=== PATIENT | female | born 1985 | race African-American/Black ===

== ENCOUNTER 2017-04-23 23:50 | Emergency (ER) | payer BC ==
[2017-04-24] MEDS ORDERED: cefTRIAXone 1,000 MG in Lidocaine 1% 4 ML IM ONE (00:38)
--- NOTE | 2017-04-24 00:41 | EDM.PDOC ---
ED HPI GENERAL MEDICAL PROBLEM - General Chief Complaint: Upper Extremity Injury/Pain Stated Complaint: PAIN LT MIDDLE FINGER Time Seen by Provider: 04/24/17 00:38 Source of Information: Reports: Patient - History of Present Illness INITIAL COMMENTS - FREE TEXT/NARRATIVE: HISTORY AND PHYSICAL: History of present illness: [Patient has a cellulitis on her left third digit tuft that began after ripping off a hangnail, patient had been poking at her finger with a needle as well thinking there were some exudates to drain as she has had a distal phelon in the past however is more consistent with just a cellulitis at this time. No fever nausea vomiting chills sweats there is redness tenderness and mild swelling of the distal finger no redness past the distal phalanx at this time ] Review of systems: As per history of present illness and below otherwise all systems reviewed and negative. Past medical history: As per history of present illness and as reviewed below otherwise noncontributory. Surgical history: As per history of present illness and as reviewed below otherwise noncontributory. Social history: No reported history of drug or alcohol abuse. Family history: As per history of present illness and as reviewed below otherwise noncontributory. Physical exam: HEENT: Atraumatic, normocephalic, pupils reactive, negative for conjunctival pallor or scleral icterus, mucous membranes moist, throat clear, neck supple, nontender, trachea midline. Lungs: Clear to auscultation, breath sounds equal bilaterally, chest nontender. Heart: S1S2, regular, negative for clicks, rubs, or JVD. Abdomen: Soft, nondistended, nontender. Negative for masses or hepatosplenomegaly. Negative for costovertebral tenderness. Pelvis: Stable nontender. Genitourinary: Deferred. Rectal: Deferred. Extremities: Atraumatic, negative for cords or calf pain. Neurovascular unremarkable. Neuro: Awake, alert, oriented. Cranial nerves II through XII unremarkable. Cerebellum unremarkable. Motor and sensory unremarkable throughout. Exam nonfocal. Skin as per history of present illness Diagnostics: [Clinical ] Therapeutics: [Rocephin 1 g IM Bactrim double strength by mouth twice a day #20 no refill Tramadol 50 mg by mouth 3 times a day when necessary ] Impression: [Cellulitis distal finger] Definitive disposition and diagnosis as appropriate pending reevaluation and review of above. Left 3-Middle finger Pain Score (Numeric/FACES): 9 - Related Data Allergies Allergy/AdvReac Type Severity Reaction Status Date / Time No Known Allergies Allergy Verified 04/24/17 00:06 Home Meds: Home Meds . 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 ED EXAM, GENERAL - Physical Exam Exam: See Below Course - Vital Signs Last Recorded V/S: Last Vital Signs Temp 36.4 C 04/24/17 00:02 Pulse 112 H 04/24/17 00:02 Resp 18 04/24/17 00:02 BP 140/66 04/24/17 00:02 Pulse Ox 98 04/24/17 00:02 - Orders/Labs/Meds Orders: Active Orders 24 hr Category Date Time Status cefTRIAXone [Rocephin] 1,000 mg Med 04/24/17 00:38 Ordered Lidocaine 1% [Xylocaine-MPF 1%] 4 ml IM ONETIME Departure - Departure Time of Disposition: 00:40 Disposition: Home, Self-Care 01 Condition: Good Clinical Impression: Cellulitis - Discharge Information Referrals: PCP,None [Primary Care Provider] - Additional Instructions: Medication as prescribed Return if symptoms persist or worsen or new concerning symptoms develop Follow-up with primary care in 2 weeks sooner as needed The following information is given to patients seen in the emergency department who are being discharged to home. This information is to outline your options for follow-up care. We provide all patients seen in our emergency department with a follow-up referral. The need for follow-up, as well as the timing and circumstances, are variable depending upon the specifics of your emergency department visit. If you don't have a primary care physician on staff, we will provide you with a referral. We always advise you to contact your personal physician following an emergency department visit to inform them of the circumstance of the visit and for follow-up with them and/or the need for any referrals to a consulting specialist. The emergency department will also refer you to a specialist when appropriate. This referral assures that you have the opportunity for follow-up care with a specialist. All of these measure are taken in an effort to provide you with optimal care, which includes your follow-up. Under all circumstances we always encourage you to contact your private physician who remains a resource for coordinating your care. When calling for follow-up care, please make the office aware that this follow-up is from your recent emergency room visit. If for any reason you are refused follow-up, please contact the [facility] emergency department at and asked to speak to the emergency department charge nurse. - My Orders Last 24 Hours: My Active Orders 04/24/17 00:38 cefTRIAXone [Rocephin] 1,000 mg Lidocaine 1% [Xylocaine-MPF 1%] 4 ml IM ONETIME - Assessment/Plan Last 24 Hours: My Active Orders 04/24/17 00:38 cefTRIAXone [Rocephin] 1,000 mg Lidocaine 1% [Xylocaine-MPF 1%] 4 ml IM ONETIME
[2017-04-24] MEDS ORDERED: Lidocaine 1% 20 ML MDV ONE (00:46)
[2017-04-24] MEDS ORDERED: cefTRIAXone 1,000 MG VIAL ONE (00:46)
== END 2017-04-24 01:39 | disposition home or self-care (01) ==
LOC: MW.ED 23:50
DX: L03.012 Cellulitis of left finger (principal)
CPT/HCPCS: 96372; 99283; J0696; 99282

== ENCOUNTER 2017-05-04 14:04 | Emergency (ER) | payer BC ==
--- NOTE | 2017-05-04 14:41 | EDM.PDOC ---
ED HPI GENERAL MEDICAL PROBLEM - General Stated Complaint: allergic reation to medication Time Seen by Provider: 05/04/17 14:30 Source of Information: Reports: Patient History Limitations: Reports: No Limitations - History of Present Illness INITIAL COMMENTS - FREE TEXT/NARRATIVE: History of present illness: [32-year-old female comes in complaining of a rash status post sulfa drugs prescription area patient complaining of localized breaking out to her face and upper neck. Indicates that is quite pruritic and has gotten progressively worse and finally she quit taking the medicine Wednesday which is approximately 2 days ago.] Review of systems: As per history of present illness and below otherwise all systems reviewed and negative. Past medical history: As per history of present illness and as reviewed below otherwise noncontributory. Surgical history: As per history of present illness and as reviewed below otherwise noncontributory. Social history: No reported history of drug or alcohol abuse. Family history: As per history of present illness and as reviewed below otherwise noncontributory. Physical exam: HEENT: Atraumatic, diffuse macular papular rash spread across the face localized in the forehead and bilateral cheek area, pupils reactive, negative for conjunctival pallor or scleral icterus, mucous membranes moist, throat clear , neck supple, nontender, trachea midline. Lungs: Clear to auscultation, breath sounds equal bilaterally, chest nontender. Heart: S1S2, regular, negative for clicks, rubs, or JVD. Abdomen: Soft, nondistended, nontender. Negative for masses or hepatosplenomegaly. Negative for costovertebral tenderness. Pelvis: Stable nontender. Genitourinary: Deferred. Rectal: Deferred. Extremities: Atraumatic, negative for cords or calf pain. Neurovascular unremarkable. Neuro: Awake, alert, oriented. Cranial nerves II through XII unremarkable. Cerebellum unremarkable. Motor and sensory unremarkable throughout. Exam nonfocal. Skin: As noted above in the HEENT Diagnostics: [] Therapeutics: [IV fluids, Solu-Medrol] Impression: [Allergic dermatitis] Plan: [Medrol Dosepak follow-up with PCP] Definitive disposition and diagnosis as appropriate pending reevaluation and review of above. 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: - Infectious Disease History Infectious Disease History: Reports: Chicken Pox Social & Family History - Family History Family Medical History: Noncontributory - Tobacco Use Smoking Status *Q: Never Smoker Second Hand Smoke Exposure: No - Caffeine Use Caffeine Use: Reports: Soda - Recreational Drug Use Recreational Drug Use: No ED ROS GENERAL - Review of Systems Review Of Systems: See Below (History of present illness) ED EXAM, GENERAL - Physical Exam Exam: See Below (History of present illness) Course - Vital Signs Last Recorded V/S: Last Vital Signs Temp 36.3 C 05/04/17 14:32 Pulse 101 H 05/04/17 14:32 Resp 18 05/04/17 14:32 BP 103/67 05/04/17 14:32 Pulse Ox 99 05/04/17 14:32 - Orders/Labs/Meds Meds: Medications Discontinued Medications Generic Name Dose Route Start Last Admin Trade Name Shaileshq PRN Reason Stop Dose Admin Sodium Chloride 1,000 mls @ 999 mls/hr 05/04/17 14:51 05/04/17 15:13 Normal Saline IV 05/04/17 15:51 999 mls/hr STAT ONE Administration Methylprednisolone Sodium Succinate 125 mg 05/04/17 14:51 05/04/17 15:14 Solu-Medrol IVPUSH 05/04/17 14:52 125 mg ONETIME ONE Administration Departure - Departure Time of Disposition: 16:07 Disposition: Home, Self-Care 01 Condition: Good Clinical Impression: Drug-induced purpura - Discharge Information Prescriptions: methylPREDNISolone [Medrol] 4 mg PO DAILY #21 tab.ds.pk Referrals: PCP,None [Primary Care Provider] - Additional Instructions: The following information is given to patients seen in the emergency department who are being discharged to home. This information is to outline your options for follow-up care. We provide all patients seen in our emergency department with a follow-up referral. The need for follow-up, as well as the timing and circumstances, are variable depending upon the specifics of your emergency department visit. If you don't have a primary care physician on staff, we will provide you with a referral. We always advise you to contact your personal physician following an emergency department visit to inform them of the circumstance of the visit and for follow-up with them and/or the need for any referrals to a consulting specialist. The emergency department will also refer you to a specialist when appropriate. This referral assures that you have the opportunity for follow-up care with a specialist. All of these measure are taken in an effort to provide you with optimal care, which includes your follow-up. Under all circumstances we always encourage you to contact your private physician who remains a resource for coordinating your care. When calling for follow-up care, please make the office aware that this follow-up is from your recent emergency room visit. If for any reason you are refused follow-up, please contact the [facility] Emergency Department at and asked to speak to the emergency department charge nurse. Take medication as directed Follow-up with PCP in 2-3 days Return to ED as needed as discussed
[2017-05-04] MEDS ORDERED: methylPREDNISolone Sodium Succinate 125 MG/2 ML SDV IVPUSH ONE (14:51)
[2017-05-04] MEDS ORDERED: Sodium Chloride 0.9% 1,000 ML IV ONE (14:51)
== END 2017-05-04 16:33 | disposition home or self-care (01) ==
LOC: MW.ED 14:04
DX: L23.3 Allergic contact dermatitis due to drugs in contact with skin (principal); Z79.899 Other long term (current) drug therapy
CPT/HCPCS: 96361; 96374; 99283; J2930; J7040

== ENCOUNTER 2020-10-16 13:48 | Observation (INO) | payer BC ==
--- NOTE | 2020-10-16 14:27 | EDM.PDOC ---
ED HPI GENERAL MEDICAL PROBLEM - General Chief Complaint: Respiratory Problem Stated Complaint: COLLAPSED LUNG Time Seen by Provider: 10/16/20 13:55 Source of Information: Reports: Patient History Limitations: Reports: No Limitations - History of Present Illness INITIAL COMMENTS - FREE TEXT/NARRATIVE: Patient is a 35-year-old female who presents today for possible pneumothorax and left side. Patient had a cough for which she says over a year and went into the doctor today because she thought the cough was improved creasing they did an x- ray and showed a pneumonia that was +40%. Patient states that she does notice some slight pain left side but otherwise does not have any complaints no shortness of breath nausea vomiting fever chills. 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: - Infectious Disease History Infectious Disease History: Reports: Chicken Pox Social & Family History - Family History Family Medical History: No Pertinent Family History - Tobacco Use Tobacco Use Status *Q: Never Tobacco User - Caffeine Use Caffeine Use: Reports: None - Recreational Drug Use Recreational Drug Use: No ED ROS GENERAL - Review of Systems Review Of Systems: See Below Constitutional: Reports: No Symptoms HEENT: Reports: No Symptoms Respiratory: Reports: No Symptoms Cardiovascular: Reports: No Symptoms Endocrine: Reports: No Symptoms GI/Abdominal: Reports: No Symptoms : Reports: No Symptoms Musculoskeletal: Reports: No Symptoms Skin: Reports: No Symptoms Neurological: Reports: No Symptoms Psychiatric: Reports: No Symptoms Hematologic/Lymphatic: Reports: No Symptoms Immunologic: Reports: No Symptoms ED EXAM, GENERAL - Physical Exam Exam: See Below Exam Limited By: No Limitations General Appearance: Alert, WD/WN Respiratory/Chest: No Respiratory Distress, Lungs Clear Cardiovascular: Normal Peripheral Pulses, Regular Rate, Rhythm GI/Abdominal: Normal Bowel Sounds, Soft, Non-Tender Extremities: Normal Inspection, Normal Range of Motion Neurological: Alert, Oriented, CN II-XII Intact ED RESPIRATORY PROCEDURES - Chest Tube Insertion Chest Tube Location: Left Site: Mid Axillary Line Tube Size: 20Fr Skin Prep: Betadine Local Anesthesia - Lidocaine (Xylocaine): 1% Plain Local Anesthetic Volume: 3cc Barrera of Air [place]: Yes Number of Attempts: 1 Tube Sutured to Skin: Yes Post procedure tube position confirmed by: by CXR, by Provider Tube Connected to Suction: Yes #1 Interpretation EKG Date: 10/16/20 Time: 14:06 Rhythm: NSR Rate (Beats/Min): 88 ST-T: Normal Course - Vital Signs Last Recorded V/S: Last Vital Signs Temp 97.6 F 10/16/20 13:58 Pulse 86 10/16/20 15:14 Resp 16 10/16/20 15:14 BP 118/73 10/16/20 15:14 Pulse Ox 99 10/16/20 15:14 - Orders/Labs/Meds Orders: Active Orders 24 hr Category Date Time Status Patient Status [ADT] Routine ADT 10/16/20 19:10 Active EKG 12 Lead [EKG Documentation Completion] [RC] STAT Care 10/16/20 16:52 Active Notify Provider Consults [RC] ASDIRECTED Care 10/16/20 15:49 Active Oxygen Therapy Adult [Oxygen Therapy, ED] [RC] Care 10/16/20 15:54 Active ASDIRECTED Consult to Physician [CONS] Stat Cons 10/16/20 15:49 Active Chest wo Cont [CT] Stat Exams 10/16/20 17:25 Taken ceFAZolin [Ancef 1 GM/50 ML] 1 gm Med 10/16/20 19:06 Active Premix Bag 1 bag IV ONETIME Medication Orders Cefazolin Sodium/Dextrose 1 gm (/ Premix) 50 mls @ 100 mls/hr IV ONETIME ONE Stop: 10/16/20 19:35 Labs: Laboratory Tests 10/16/20 10/16/20 10/16/20 Range/Units 14:16 14:16 14:16 WBC 7.65 (4.0-11.0) K/uL RBC 4.03 L (4.30-5.90) M/uL Hgb 13.4 (12.0-16.0) g/dL Hct 38.0 (36.0-46.0) % MCV 94.3 (80.0-98.0) fL MCH 33.3 H (27.0-32.0) pg MCHC 35.3 (31.0-37.0) g/dL RDW Std Deviation 42.1 (28.0-62.0) fl RDW Coeff of See 12 (11.0-15.0) % Plt Count 260 (150-400) K/uL MPV 10.70 (7.40-12.00) fL Neut % (Auto) 63.2 (48.0-80.0) % Lymph % (Auto) 27.1 (16.0-40.0) % [place] % (Auto) 6.7 (0.0-15.0) % Eos % (Auto) 2.6 (0.0-7.0) % Baso % (Auto) 0.4 (0.0-1.5) % Neut # (Auto) 4.8 (1.4-5.7) K/uL Lymph # (Auto) 2.1 (0.6-2.4) K/uL [place] # (Auto) 0.5 (0.0-0.8) K/uL Eos # (Auto) 0.2 (0.0-0.7) K/uL Baso # (Auto) 0.0 (0.0-0.1) K/uL Nucleated RBC % 0.0 /100WBC Nucleated RBCs # 0 K/uL INR APTT (18.6-31.3) SEC Sodium 142 (136-145) mmol/L Potassium 3.6 (3.5-5.1) mmol/L Chloride 107 (98-107) mmol/L Carbon Dioxide 25.9 (21.0-32.0) mmol/L BUN 6 L (7.0-18.0) mg/dL Creatinine 0.8 (0.6-1.0) mg/dL Est Cr Clr Drug Dosing TNP Estimated GFR (MDRD) > 60.0 ml/min Glucose 104 (74-106) mg/dL Calcium 8.9 (8.5-10.1) mg/dL HCG, Qual NEGATIVE (NEG) SARS-CoV-2 RNA (GAIL) (NEGATIVE) 10/16/20 10/16/20 Range/Units 14:16 15:46 WBC (4.0-11.0) K/uL RBC (4.30-5.90) M/uL Hgb (12.0-16.0) g/dL Hct (36.0-46.0) % MCV (80.0-98.0) fL MCH (27.0-32.0) pg MCHC (31.0-37.0) g/dL RDW Std Deviation (28.0-62.0) fl RDW Coeff of See (11.0-15.0) % Plt Count (150-400) K/uL MPV (7.40-12.00) fL Neut % (Auto) (48.0-80.0) % Lymph % (Auto) (16.0-40.0) % [place] % (Auto) (0.0-15.0) % Eos % (Auto) (0.0-7.0) % Baso % (Auto) (0.0-1.5) % Neut # (Auto) (1.4-5.7) K/uL Lymph # (Auto) (0.6-2.4) K/uL [place] # (Auto) (0.0-0.8) K/uL Eos # (Auto) (0.0-0.7) K/uL Baso # (Auto) (0.0-0.1) K/uL Nucleated RBC % /100WBC Nucleated RBCs # K/uL INR 1.07 APTT 26.3 (18.6-31.3) SEC Sodium (136-145) mmol/L Potassium (3.5-5.1) mmol/L Chloride (98-107) mmol/L Carbon Dioxide (21.0-32.0) mmol/L BUN (7.0-18.0) mg/dL Creatinine (0.6-1.0) mg/dL Est Cr Clr Drug Dosing Estimated GFR (MDRD) ml/min Glucose (74-106) mg/dL Calcium (8.5-10.1) mg/dL HCG, Qual (NEG) SARS-CoV-2 RNA (GAIL) NEGATIVE (NEGATIVE) Meds: Medications Generic Name Dose Route Start Last Admin Trade Name Freq PRN Reason Stop Dose Admin Cefazolin Sodium/Dextrose 1 gm 50 mls @ 100 mls/hr 10/16/20 19:06 / Premix IV 10/16/20 19:35 ONETIME ONE Discontinued Medications Generic Name Dose Route Start Last Admin Trade Name Freq PRN Reason Stop Dose Admin Sodium Chloride 1,000 mls @ 1,000 mls/hr 10/16/20 15:54 10/16/20 15:57 Normal Saline IV 10/16/20 16:53 1,000 mls/hr .Bolus ONE Administration Lidocaine/Epinephrine 20 ml 10/16/20 15:44 10/16/20 15:57 Lidocaine 1% With Epinephrine 1:100,000 20 Ml Mdv INJECT 10/16/20 15:45 20 ml ONETIME ONE Administration Lidocaine/Epinephrine Confirm 10/16/20 15:44 10/16/20 15:52 Lidocaine 1% With Epinephrine 1:100,000 20 Ml Mdv Administered 10/16/20 15:45 Not Given Dose 20 ml .ROUTE .STK-MED ONE Midazolam HCl Confirm 10/16/20 16:21 Midazolam 1 Mg/Ml 2 Ml Sdv Administered 10/16/20 16:22 Dose 2 mg .ROUTE .STK-MED ONE Morphine Sulfate Confirm 10/16/20 17:06 10/16/20 17:23 Morphine 4 Mg/Ml Syringe Administered 10/16/20 17:07 Not Given Dose 4 mg .ROUTE .STK-MED ONE Morphine Sulfate 4 mg 10/16/20 17:22 10/16/20 17:23 Morphine 4 Mg/Ml Syringe IVPUSH 10/16/20 17:23 4 mg ONETIME ONE Administration Propofol Confirm 10/16/20 16:21 Propofol 200 Mg/20 Ml Sdv Administered 10/16/20 16:22 Dose 200 mg .ROUTE .STK-MED ONE - Re-Assessments/Exams Free Text/Narrative Re-Assessment/Exam: 10/16/20 19:[address] showed the pneumothorax we placed a chest tube on the left side. When she had x-ray of the chest tube seems to be angling down we get a CT scan to confirm placement. On the CAT scan it looks like the lung was reinflated there was some leak of air will be connected to suction we attempted to find a leak without success but the lung has reinflated. Patient will be admitted to the hospital pending CT results. Departure - Departure Time of Disposition: 19:23 Disposition: Refer to Observation Condition: Good Clinical Impression: Pneumothorax on left - Discharge Information *PRESCRIPTION DRUG MONITORING PROGRAM REVIEWED*: Not Applicable *COPY OF PRESCRIPTION DRUG MONITORING REPORT IN PATIENT HOMERO: Not Applicable Referrals: PCP,None [Primary Care Provider] - Forms: ED Department Discharge Sepsis Event Note (ED) - Evaluation Sepsis Screening Result: No Definite Risk - Focused Exam Vital Signs: Vital Signs Temp Pulse Resp BP Pulse Ox 10/16/20 15:14 86 16 118/73 99 10/16/20 15:09 85 18 143/95 H 95 10/16/20 13:58 97.6 F 87 17 138/84 98 - My Orders Last 24 Hours: My Active Orders 10/16/20 15:54 Oxygen Therapy Adult [Oxygen Therapy, ED] [RC] ASDIRECTED 10/16/20 16:52 EKG 12 Lead [EKG Documentation Completion] [RC] STAT 10/16/20 17:25 Chest wo Cont [CT] Stat 10/16/20 19:06 ceFAZolin [Ancef 1 GM/50 ML] 1 gm Premix Bag 1 bag IV ONETIME 10/16/20 19:10 Patient Status [ADT] Routine - Assessment/Plan Last 24 Hours: My Active Orders 10/16/20 15:54 Oxygen Therapy Adult [Oxygen Therapy, ED] [RC] ASDIRECTED 10/16/20 16:52 EKG 12 Lead [EKG Documentation Completion] [RC] STAT 10/16/20 17:25 Chest wo Cont [CT] Stat 10/16/20 19:06 ceFAZolin [Ancef 1 GM/50 ML] 1 gm Premix Bag 1 bag IV ONETIME 10/16/20 19:10 Patient Status [ADT] Routine Plan: She is a 35-year-old female who presents today for possible pneumothorax on the left. We will repeat imaging and likely place a chest tube as needed.
[2020-10-16 14:46] LABS: BLOOD UREA NITROGEN,BUN 6 mg/dL (7.0-18.0); CARBON DIOXIDE,CO2 25.9 mmol/L (21.0-32.0); CHLORIDE,CL 107 mmol/L (98-107); GLUCOSE RANDOM 104 mg/dL (74-106); POTASSIUM,K 3.6 mmol/L (3.5-5.1); SODIUM,NA 142 mmol/L (136-145)
--- NOTE | 2020-10-16 15:35 | CT ---
Indication: Possible pneumothorax on chest x-ray. Technique: CT of the chest without IV contrast. Coronal and sagittal reconstructions. Comparison: Chest radiograph 10/16/2020. Findings: Normal heart size. Normal caliber thoracic aorta and central pulmonary arteries. No pericardial effusion. No thoracic lymphadenopathy. There is a moderate to large left pneumothorax with associated left lung atelectasis. Small left pleural effusion. The right lung is clear. No pulmonary nodules identified. No mediastinal shift to suggest tension physiology. No central endobronchial lesion. The thyroid gland is normal in appearance. The visualized unenhanced upper abdomen and bones are unremarkable. Impression: 1. Moderate to large left hydropneumothorax with associated left lung atelectasis. This is composed of a large amount air and small amount of fluid. No evidence of tension physiology. 2. Findings discussed with Frederick Dent at 3:33pm on 10/16/2020. Please note that all CT scans at this facility use dose modulation, iterative reconstruction, and/or weight-based dosing when appropriate to reduce radiation dose to as low as reasonably achievable. Dictated by Debby Hernandez MD @ Oct 16 2020 3:20PM (Electronically Signed)
[2020-10-16] MEDS ORDERED: Lidocaine 1% with EPINEPHrine 1:100,000 10 ML MDV INJECT ONE (15:40)
[2020-10-16] MEDS ORDERED: Lidocaine 1% with EPINEPHrine 1:100,000 20 ML MDV ONE (15:44)
[2020-10-16] MEDS ORDERED: Lidocaine 1% with EPINEPHrine 1:100,000 20 ML MDV INJECT ONE (15:44)
[2020-10-16] MEDS ORDERED: Sodium Chloride 0.9% 1,000 ML IV ONE (15:54)
[2020-10-16] MEDS ORDERED: Propofol 200 MG/20 ML SDV ONE (16:21)
[2020-10-16] MEDS ORDERED: Midazolam 1 MG/ML 2 ML SDV ONE (16:21)
[2020-10-16] MEDS ORDERED: Morphine 4 MG/ML Syringe ONE (17:06)
--- NOTE | 2020-10-16 17:16 | PCM.PREANE ---
Preanesthetic Assessment - Anesthesia/Transfusion/Family Hx Anesthesia History: No Prior Anesthesia Family History of Anesthesia Reaction: No - Review of Systems Pulmonary: Shortness of Breath - Physical Assessment NPO Status Date: 10/16/20 NPO Status Time: 00:05 Vital Signs: Last Vital Signs Temp 36.4 C 10/16/20 13:58 Pulse 86 10/16/20 15:14 Resp 16 10/16/20 15:14 BP 118/73 10/16/20 15:14 Pulse Ox 99 10/16/20 15:14 Height: 1.78 m Weight: 92.986 kg ASA Class: 2E - Lab Values: Laboratory Last Values WBC 7.65 K/uL (4.0-11.0) 10/16/20 14:16 RBC 4.03 M/uL (4.30-5.90) L 10/16/20 14:16 Hgb 13.4 g/dL (12.0-16.0) 10/16/20 14:16 Hct 38.0 % (36.0-46.0) 10/16/20 14:16 MCV 94.3 fL (80.0-98.0) 10/16/20 14:16 MCH 33.3 pg (27.0-32.0) H 10/16/20 14:16 MCHC 35.3 g/dL (31.0-37.0) 10/16/20 14:16 RDW Std Deviation 42.1 fl (28.0-62.0) 10/16/20 14:16 RDW Coeff of See 12 % (11.0-15.0) 10/16/20 14:16 Plt Count 260 K/uL (150-400) 10/16/20 14:16 MPV 10.70 fL (7.40-12.00) 10/16/20 14:16 Neut % (Auto) 63.2 % (48.0-80.0) 10/16/20 14:16 Lymph % (Auto) 27.1 % (16.0-40.0) 10/16/20 14:16 [place] % (Auto) 6.7 % (0.0-15.0) 10/16/20 14:16 Eos % (Auto) 2.6 % (0.0-7.0) 10/16/20 14:16 Baso % (Auto) 0.4 % (0.0-1.5) 10/16/20 14:16 Neut # (Auto) 4.8 K/uL (1.4-5.7) 10/16/20 14:16 Lymph # (Auto) 2.1 K/uL (0.6-2.4) 10/16/20 14:16 [place] # (Auto) 0.5 K/uL (0.0-0.8) 10/16/20 14:16 Eos # (Auto) 0.2 K/uL (0.0-0.7) 10/16/20 14:16 Baso # (Auto) 0.0 K/uL (0.0-0.1) 10/16/20 14:16 Nucleated RBC % 0.0 /100WBC 10/16/20 14:16 Nucleated RBCs # 0 K/uL 10/16/20 14:16 INR 1.07 10/16/20 14:16 APTT 26.3 SEC (18.6-31.3) 10/16/20 14:16 Sodium 142 mmol/L (136-145) 10/16/20 14:16 Potassium 3.6 mmol/L (3.5-5.1) 10/16/20 14:16 Chloride 107 mmol/L (98-107) 10/16/20 14:16 Carbon Dioxide 25.9 mmol/L (21.0-32.0) 10/16/20 14:16 BUN 6 mg/dL (7.0-18.0) L 10/16/20 14:16 Creatinine 0.8 mg/dL (0.6-1.0) 10/16/20 14:16 Est Cr Clr Drug Dosing TNP 10/16/20 14:16 Estimated GFR (MDRD) > 60.0 ml/min 10/16/20 14:16 Glucose 104 mg/dL (74-106) 10/16/20 14:16 Calcium 8.9 mg/dL (8.5-10.1) 10/16/20 14:16 HCG, Qual NEGATIVE (NEG) 10/16/20 14:16 SARS-CoV-2 RNA (GAIL) NEGATIVE (NEGATIVE) 10/16/20 15:46 - Allergies Allergies/Adverse Reactions: Allergies Allergy/AdvReac Type Severity Reaction Status Date / Time No Known Allergies Allergy Verified 10/16/20 13:58 - Acknowledgements Anesthesia Type Planned: MAC Pt an Appropriate Candidate for the Planned Anesthesia: Yes Alternatives and Risks of Anesthesia Discussed w Pt/Guardian: Yes Pt/Guardian Understands and Agrees with Anesthesia Plan: Yes PreAnesthesia Questionnaire - Past Health History Medical/Surgical History: Denies Medical/Surgical History [facility] History: Reports: - Infectious Disease History Infectious Disease History: Reports: Chicken Pox - SUBSTANCE USE Tobacco Use Status *Q: Never Tobacco User Recreational Drug Use History: No - HOME MEDS Home Medications: Home Meds methylPREDNISolone [Medrol] 4 mg PO DAILY #21 tab.ds.pk 05/04/17 [Rx] - CURRENT (IN HOUSE) MEDS Current Meds: Current Medications Discontinued Medications Sodium Chloride (Normal Saline) 1,000 mls @ 1,000 mls/hr IV .Bolus ONE Stop: 10/16/20 16:53 Last Admin: 10/16/20 15:57 Dose: 1,000 mls/hr Documented by: Lidocaine/Epinephrine (Lidocaine 1% With Epinephrine 1:100,000 20 Ml Mdv) 20 ml INJECT ONETIME ONE Stop: 10/16/20 15:45 Last Admin: 10/16/20 15:57 Dose: 20 ml Documented by: Lidocaine/Epinephrine (Lidocaine 1% With Epinephrine 1:100,000 20 Ml Mdv) Confirm Administered Dose 20 ml .ROUTE .STK-MED ONE Stop: 10/16/20 15:45 Last Admin: 10/16/20 15:52 Dose: Not Given Documented by: Midazolam HCl (Midazolam 1 Mg/Ml 2 Ml Sdv) Confirm Administered Dose 2 mg .ROUTE .STK-MED ONE Stop: 10/16/20 16:22 Morphine Sulfate (Morphine 4 Mg/Ml Syringe) Confirm Administered Dose 4 mg .ROUTE .STK-MED ONE Stop: 10/16/20 17:07 Propofol (Propofol 200 Mg/20 Ml Sdv) Confirm Administered Dose 200 mg .ROUTE .STK-MED ONE Stop: 10/16/20 16:22
--- NOTE | 2020-10-16 17:19 | PCM.PRNOTE ---
- Free Text/Narrative Note: Anes Note I was called to ER to provide Conscious Sedation for left chest tube placement. Patient has mild shortness of breath and some pain upon deep inspiration. O2 sats are 97% on room air. Resp rate is 20. I administered 2 mg versed at 1640. At [id number] I administered 200 mg propofol in 10 mg increments. Moderate depth of conscious sedation was achieved. Procedure tolerated well. Time with patient [id number] Derek Dye CRNA
[2020-10-16] MEDS ORDERED: Morphine 4 MG/ML Syringe IVPUSH ONE (17:22)
--- NOTE | 2020-10-16 18:21 | CR ---
Indication: Chest tube placement Technique: Upright AP view of the chest Comparison: PA and lateral chest radiographs 10/16/2020 at 1:16 p.m. Findings/Impression: Status post placement of left chest tube, left pneumothorax has markedly decreased in size. Otherwise stable radiographic appears the chest. Dictated by Atiya Sanchez MD @ Oct 16 2020 6:19PM Signed by Dr. Atiya Sanchez @ Oct 16 2020 6:19PM
[2020-10-16] MEDS ORDERED: ceFAZolin 1 GM in Premix Bag 1 BAG IV ONE (19:06)
[2020-10-16] MEDS ORDERED: Albuterol/Ipratropium 3.0-0.5 MG/3 ML Neb Soln NEB PRN (19:55)
[2020-10-16] MEDS ORDERED: Morphine 10 MG/ML Syringe IVPUSH PRN (19:55)
[2020-10-16] MEDS ORDERED: Ondansetron 4 MG/2 ML SDV IVPUSH PRN (19:55)
[2020-10-16] MEDS ORDERED: Acetaminophen 325 MG Tab PO PRN (19:55)
--- NOTE | 2020-10-16 19:56 | CT ---
Addendum: Please disregard the prior report which refers to the CT scan that was performed at 2:40 p.m. The following report refers to the scan that was performed at 5:56 p.m. There is now re-expansion of the left lung. No pneumothorax is seen. There is left basilar atelectasis small effusion. Left-sided chest tube present. The tip extends anterior and inferior into the left anterior pericardial fat pad. Subcutaneous emphysema. Right basilar atelectasis. Please note that all CT scans at this facility use dose modulation, iterative reconstruction, and/or weight-based dosing when appropriate to reduce radiation dose to as low as reasonably achievable. Dictated by Lore iDllon MD @ Oct 16 2020 8:07PM Signed by Dr. Lore Dillon @ Oct 16 2020 8:12PM
[2020-10-16] MEDS: Lactated Ringers 1,000 ML IV SCH (21:42)
[2020-10-16] MEDS: Morphine 2 MG/ML SYRINGE IVPUSH PRN (22:41)
--- NOTE | 2020-10-17 00:18 | PCM.HP.2 ---
H&P History of Present Illness - General Date of Service: 10/17/20 Admit Problem/Dx: Admission Diagnosis/Problem Admission Diagnosis/Problem Pneumothorax - History of Present Illness Initial Comments - Free Text/Narative: Patient is a 35-year-old female who presents today for possible pneumothorax of left side diagnosed on CXR at her PCP office, she has no known PMH except for chronic cough for last last 1 decade which has gotten worse recently. Cough is usually dy and is associated with post nasal drip, . Patient states she was having "pleurisy" and went to her PCP for evalaution who prescribed her rescue inhalers for possible asthma, but her cough got worse, and she also felt SOB on exertion hence CXR was done which she had requested. In the ER CT chest confirmed left sided large pneumothorax, with some fluid as well and associated atelectasis, Chest tube was inserted in ER and patients fu imaging showed reexpansion, patient was admitted for further management. Patient states that she does have slight pain left side as incision sight but otherwise does not have any complaints no shortness of breath nausea vomiting fever chills. Denied smoking, vaping, or any contact sports or trauma history. Left chest Pain Score (Numeric/FACES): 3 - Related Data Allergies/Adverse Reactions: Allergies Allergy/AdvReac Type Severity Reaction Status Date / Time Sulfa (Sulfonamide Allergy Other Verified 10/16/20 21:47 Antibiotics) Home Medications: Home Meds methylPREDNISolone [Medrol] 4 mg PO DAILY #21 tab.ds.pk 05/04/17 [Rx] Phentermine HCl 37.5 mg PO DAILY 10/16/20 [History] Past Medical History - Past Health History Medical/Surgical History: Denies Medical/Surgical History [employer] History: Reports: - Infectious Disease History Infectious Disease History: Reports: Chicken Pox Social & Family History - Family History Family Medical History: No Pertinent Family History - Tobacco Use Tobacco Use Status *Q: Never Tobacco User Second Hand Smoke Exposure: No - Caffeine Use Caffeine Use: Reports: None - Recreational Drug Use Recreational Drug Use: No H&P Review of Systems - Review of Systems: Review Of Systems: See Below General: Denies: Fever, Chills, Malaise, Weakness Pulmonary: Reports: Pleuritic Chest Pain, Cough. Denies: Shortness of Breath, Wheezing, Sputum, Hemoptysis Cardiovascular: Reports: Chest Pain, Dyspnea on Exertion. Denies: Palpitations Gastrointestinal: Denies: Abdominal Pain, Anorexia, Black Stool Genitourinary: Denies: Dysuria, Frequency, Burning Musculoskeletal: Denies: Neck Pain, Shoulder Pain, Muscle Pain Skin: Denies: Jaundice, Mottled, Pallor Psychiatric: Denies: Confusion, Depression, Mood Lability, Anxiety Neurological: Denies: Confusion, Dizziness, Headache Hematologic/Lymphatic: Denies: Anemia, Easy Bleeding, Easy Bruising, Swollen Glands Exam - Exam Exam: See Below - Vital Signs Vital Signs: Last Vital Signs Temp 36.8 C 10/16/20 21:30 Pulse 80 10/16/20 21:30 Resp 16 10/16/20 21:30 BP 103/61 10/16/20 21:30 Pulse Ox 99 10/16/20 22:00 Weight: 93.485 kg - Exam General: Alert, Oriented Neck: Supple, Trachea Midline Lungs: Clear to Auscultation, Normal Respiratory Effort. No: Decreased Breath Sounds Cardiovascular: Regular Rate, Regular Rhythm, Normal S1, Normal S2 GI/Abdominal Exam: Normal Bowel Sounds, Soft, Non-Tender - Patient Data Lab Results Last 24 hrs: Laboratory Results - last 24 hr 10/16/20 10/16/20 10/16/20 Range/Units 14:16 14:16 14:16 WBC 7.65 (4.0-11.0) K/uL RBC 4.03 L (4.30-5.90) M/uL Hgb 13.4 (12.0-16.0) g/dL Hct 38.0 (36.0-46.0) % MCV 94.3 (80.0-98.0) fL MCH 33.3 H (27.0-32.0) pg MCHC 35.3 (31.0-37.0) g/dL RDW Std Deviation 42.1 (28.0-62.0) fl RDW Coeff of See 12 (11.0-15.0) % Plt Count 260 (150-400) K/uL MPV 10.70 (7.40-12.00) fL Neut % (Auto) 63.2 (48.0-80.0) % Lymph % (Auto) 27.1 (16.0-40.0) % [place] % (Auto) 6.7 (0.0-15.0) % Eos % (Auto) 2.6 (0.0-7.0) % Baso % (Auto) 0.4 (0.0-1.5) % Neut # (Auto) 4.8 (1.4-5.7) K/uL Lymph # (Auto) 2.1 (0.6-2.4) K/uL [place] # (Auto) 0.5 (0.0-0.8) K/uL Eos # (Auto) 0.2 (0.0-0.7) K/uL Baso # (Auto) 0.0 (0.0-0.1) K/uL Nucleated RBC % 0.0 /100WBC Nucleated RBCs # 0 K/uL INR APTT (18.6-31.3) SEC Sodium 142 (136-145) mmol/L Potassium 3.6 (3.5-5.1) mmol/L Chloride 107 (98-107) mmol/L Carbon Dioxide 25.9 (21.0-32.0) mmol/L BUN 6 L (7.0-18.0) mg/dL Creatinine 0.8 (0.6-1.0) mg/dL Est Cr Clr Drug Dosing TNP Estimated GFR (MDRD) > 60.0 ml/min Glucose 104 (74-106) mg/dL Calcium 8.9 (8.5-10.1) mg/dL HCG, Qual NEGATIVE (NEG) SARS-CoV-2 RNA (GAIL) (NEGATIVE) 10/16/20 10/16/20 Range/Units 14:16 15:46 WBC (4.0-11.0) K/uL RBC (4.30-5.90) M/uL Hgb (12.0-16.0) g/dL Hct (36.0-46.0) % MCV (80.0-98.0) fL MCH (27.0-32.0) pg MCHC (31.0-37.0) g/dL RDW Std Deviation (28.0-62.0) fl RDW Coeff of See (11.0-15.0) % Plt Count (150-400) K/uL MPV (7.40-12.00) fL Neut % (Auto) (48.0-80.0) % Lymph % (Auto) (16.0-40.0) % [place] % (Auto) (0.0-15.0) % Eos % (Auto) (0.0-7.0) % Baso % (Auto) (0.0-1.5) % Neut # (Auto) (1.4-5.7) K/uL Lymph # (Auto) (0.6-2.4) K/uL [place] # (Auto) (0.0-0.8) K/uL Eos # (Auto) (0.0-0.7) K/uL Baso # (Auto) (0.0-0.1) K/uL Nucleated RBC % /100WBC Nucleated RBCs # K/uL INR 1.07 APTT 26.3 (18.6-31.3) SEC Sodium (136-145) mmol/L Potassium (3.5-5.1) mmol/L Chloride (98-107) mmol/L Carbon Dioxide (21.0-32.0) mmol/L BUN (7.0-18.0) mg/dL Creatinine (0.6-1.0) mg/dL Est Cr Clr Drug Dosing Estimated GFR (MDRD) ml/min Glucose (74-106) mg/dL Calcium (8.5-10.1) mg/dL HCG, Qual (NEG) SARS-CoV-2 RNA (GAIL) NEGATIVE (NEGATIVE) Result Diagrams: 10/16/20 14:16 10/16/20 14:16 Sepsis Event Note - Evaluation Sepsis Screening Result: No Definite Risk - Focused Exam Vital Signs: Vital Signs Temp Pulse Resp BP Pulse Ox Pulse Ox 10/16/20 22:00 99 10/16/20 21:30 36.8 C 80 16 103/61 99 99 10/16/20 21:06 71 16 118/65 98 10/16/20 19:36 82 18 111/71 98 10/16/20 18:21 77 16 127/69 99 10/16/20 17:21 85 18 137/76 100 10/16/20 15:51 88 16 113/77 100 10/16/20 15:14 86 16 118/73 99 10/16/20 15:09 85 18 143/95 H 95 10/16/20 13:58 36.4 C 87 17 138/84 98 - Problem List (1) Pneumothorax on left SNOMED Code(s): 966966807 ICD Code: J93.9 - PNEUMOTHORAX, UNSPECIFIED Status: Acute Current Visit: Yes Problem List Initiated/Reviewed/Updated: Yes Orders Last 24hrs: Active Orders 24 hr Category Date Time Status Patient Status [ADT] Routine ADT 10/16/20 19:10 Active Ambulate [RC] ASDIRECTED Care 10/16/20 19:55 Active Antiembolic Devices [RC] PER UNIT ROUTINE Care 10/16/20 19:56 Active Chest Tube Management [RC] ASDIRECTED Care 10/16/20 21:23 Active EKG 12 Lead [EKG Documentation Completion] [RC] STAT Care 10/16/20 16:52 Active IS (RT) [RT Incentive Spirometry] [RC] Q2HWA Care 10/17/20 00:16 Ordered Notify Provider Consults [RC] ASDIRECTED Care 10/16/20 15:49 Active Oxygen Therapy Adult [Oxygen Therapy, ED] [RC] Care 10/16/20 15:54 Active ASDIRECTED Oxygen Therapy [RC] PRN Care 10/16/20 19:55 Active RT Aerosol Therapy [RC] ASDIRECTED Care 10/16/20 19:57 Active VTE/DVT Education [RC] PER UNIT ROUTINE Care 10/16/20 19:55 Active Vital Signs [RC] Q4H Care 10/16/20 19:55 Active Consult to Physician [CONS] Stat Cons 10/16/20 15:49 Active Clear Liquid Diet [DIET] Diet 10/16/20 Dinner Active Chest 2V [CR] Routine Exams 10/17/20 06:00 Ordered BMP [BASIC METABOLIC PANEL,BMP] [CHEM] AM Lab 10/17/20 05:11 Ordered CBC WITH AUTO DIFF [HEME] AM Lab 10/17/20 05:11 Ordered MAGNESIUM [CHEM] AM Lab 10/17/20 05:11 Ordered PHOSPHORUS [CHEM] AM Lab 10/17/20 05:11 Ordered Acetaminophen [TylenoL] Med 10/16/20 19:55 Active 650 mg PO Q4H PRN Albuterol/Ipratropium [DuoNeb 3.0-0.5 MG/3 ML] Med 10/16/20 19:55 Active 3 ml NEB Q4HRRT PRN Lactated Ringers [Ringers, Lactated] 1,000 ml Med 10/16/20 20:00 Active IV ASDIRECTED Morphine Med 10/16/20 22:32 Active 1 mg IVPUSH Q4H PRN Ondansetron [Zofran] Med 10/16/20 19:55 Active 4 mg IVPUSH Q4H PRN Pantoprazole [ProTONIX IV] 40 mg Med 10/17/20 09:00 Active Sodium Chloride 0.9% [Normal Saline] 10 ml IV DAILY Sequential Compression Device [OM.PC] Per Unit Routine Oth 10/16/20 19:55 Ordered Resuscitation Status Routine Resus Stat 10/16/20 19:55 Ordered Medication Orders Acetaminophen (Acetaminophen 325 Mg Tab) 650 mg PO Q4H PRN PRN Reason: Pain (Mild 1-3)/fever Albuterol/Ipratropium (Albuterol/Ipratropium 3.0-0.5 Mg/3 Ml Neb Soln) 3 ml NEB Q4HRRT PRN PRN Reason: Shortness Of Breath/wheezing Lactated Ringer's (Ringers, Lactated) 1,000 mls @ 125 mls/hr IV ASDIRECTED DEBBIE Last Admin: 10/16/20 21:42 Dose: 125 mls/hr Documented by: YUDELKA Pantoprazole Sodium 40 mg/ (Sodium Chloride) 10 mls @ 300 mls/hr IV DAILY DEBBIE Morphine Sulfate (Morphine 2 Mg/Ml Syringe) 1 mg IVPUSH Q4H PRN PRN Reason: Pain (severe 7-10) Last Admin: 10/16/20 22:41 Dose: 1 mg Documented by: YUDELKA Ondansetron HCl (Ondansetron 4 Mg/2 Ml Sdv) 4 mg IVPUSH Q4H PRN PRN Reason: Nausea/Vomiting Assessment/Plan Comment:: 35 y/o F admitted for possible spontaneous pneumothorax sheri chest tube management per surgery some drainage noted, will send fluid sample for analysis Repeat CXR showed reexpansion Will obtain fu CXR in AM, Morphine for pain, zofran for nausea IV fluid over night dc in AM monitor pulse oxy continuously overnight
[2020-10-17] MEDS: Morphine 2 MG/ML SYRINGE IVPUSH PRN ×2 (04:14→11:56)
[2020-10-17] MEDS: Lactated Ringers 1,000 ML IV SCH (06:56)
--- NOTE | 2020-10-17 07:11 | CR ---
Indication: Chest tube placement Technique: Chest 1 view Comparison: October 16, 2020 Findings/Impression: Cardiovascular and mediastinum: Heart size and vasculature are normal in caliber and appearance. Lungs and pleural space: Left basilar chest tube unchanged in position. Lungs and pleural spaces are clear. No pneumothorax. Bones and soft tissues: No acute findings. Dictated by Romaine Ro MD @ Oct 17 2020 7:05AM Signed by Dr. Romaine Ro @ Oct 17 2020 7:09AM
[2020-10-17 07:35] LABS: BLOOD UREA NITROGEN,BUN 4 mg/dL (7.0-18.0); CARBON DIOXIDE,CO2 23.1 mmol/L (21.0-32.0); CHLORIDE,CL 106 mmol/L (98-107); GLUCOSE RANDOM 123 mg/dL (74-106); POTASSIUM,K 3.6 mmol/L (3.5-5.1); SODIUM,NA 139 mmol/L (136-145)
--- NOTE | 2020-10-17 07:45 | CONS ---
DATE OF CONSULTATION: 10/16/2020 DATE OF : 1985 PRIMARY CARE PHYSICIAN: None PCP HISTORY OF PRESENT ILLNESS: The patient is a pleasant 35-year-old female who says for the past 10 years she has had a cough. This has been off and on, it has gotten more worse over the past 3 years. The patient has been to her doctor's office often, complaining about this. Couple weeks ago, she was in and he gave her an inhaler and started to take some allergy medicines. The patient said that for the past 3 to 4 weeks, she has been having increasing left chest pain. She says it used to be intermittent but now is more constant, pain is more in her shoulder blade and in her left shoulder. It is now constant. She also has some shortness of breath on occasion. Because of this, she said she demanded a chest x-ray. This was done and it showed a pneumothorax, so she was sent to the hospital. She did have a CT scan which did show moderate to large left pneumothorax along with some atelectases and various small amount of fluid. The patient denies any trauma to the area or injury recently. She denies any fevers or chills. She denies any nausea or vomiting. The patient does cough, it is kind of like a mucus, occasionally will be blood tinged. The ER physician did place a left chest tube. He said there was a nice chance of air when he placed it and the chest tube did go down into the sulcus of the lung, looks to be fully reexpanded on a repeat chest CT. The patient was going to be admitted to the Medicine service but I have been asked to consult for chest tube management. PAST MEDICAL HISTORY: The patient denies any. CURRENT HOME MEDICATIONS: The patient relates some type of weight loss medicine she has been on. ALLERGIES: Sulfa. PAST SURGICAL HISTORY: The patient denies any other than the chest tube she has had today. FAMILY HISTORY: Maternal grandpa had heart disease and diabetes. Paternal grandmother had heart disease. SOCIAL HISTORY: The patient denies any tobacco use, denies any drug use. Only rare alcohol use. REVIEW OF SYSTEMS: Complete 12+ review of systems was done, was negative except for what was in HPI. PHYSICAL EXAMINATION: GENERAL: The patient is lying comfortably in the ER bed. She is alert and oriented and in no acute distress, but has little discomfort from the recent chest tube placement. HEART: Regular rhythm. No murmur appreciated. LUNGS: Clear bilaterally, although slightly decreased sounds on the left. ABDOMEN: Soft, nontender, nondistended. EXTREMITIES: No edema. NEUROLOGIC: Grossly no motor or neurologic deficit noted. She also has a chest tube placed on the left side, it is to water seal. LABORATORY DATA: White count is 7.65, hemoglobin 13.4, platelet count is 260. Sodium 142, potassium 3.6, chloride 107, BUN 6, creatinine 0.8. COVID negative. ASSESSMENT AND PLAN: This is a pleasant 35-year-old female who says had been coughing for last 10 years, has gotten worse over the past 3 years and especially the last couple of months. She had an outpatient x-ray, was found to have a left pneumothorax. I did explain to the patient what pneumothorax was. She did have a chest tube placed which shows full expansion of the pneumo. I did go over with the patient and currently I do not know what caused the pneumothorax but looks like the chest tube has reexpanded it. I went over the patient will be admitted. Potentially if lungs still up tomorrow after being on water seal, potentially we might be able to even remove the chest tube tomorrow. She will need to have further workup from primary care and Pulmonology to see any source of her pneumothorax. Discussed the patient with the hospitalist and with the ER physician. JOANNA / BÁRBARA /[id number]
[2020-10-17] MEDS: Pantoprazole 40 MG in Sodium Chloride 0.9% 10 ML IV SCH (08:42)
--- NOTE | 2020-10-17 11:16 | PCM.PN ---
- General Info Date of Service: 10/17/20 Admission Dx/Problem (Free Text): Admission Diagnosis/Problem Admission Diagnosis/Problem Pneumothorax Subjective Update: patient seen at bedside, doing well, AM CXR noted, pain is well controlled Functional Status: Reports: Tolerating Diet, Urinating - Review of Systems General: Denies: Weakness, Fatigue, Malaise Pulmonary: Reports: Pleuritic Chest Pain. Denies: Cough, Sputum Cardiovascular: Denies: Palpitations Gastrointestinal: Denies: Constipation, Decreased Appetite Genitourinary: Denies: Frequency, Burning, Pain Musculoskeletal: Denies: Shoulder Pain, Arm Pain, Hand Pain Skin: Denies: Jaundice, Mottled, Pallor Neurological: Denies: Dizziness, Headache, Numbness - Patient Data Vitals - Most Recent: Last Vital Signs Temp 36.4 C 10/17/20 08:42 Pulse 75 10/17/20 08:42 Resp 17 10/17/20 08:42 BP 107/68 10/17/20 08:42 Pulse Ox 100 10/17/20 08:42 Weight - Most Recent: 93.485 kg I&O - Last 24 Hours: Intake & Output 10/16/20 10/17/20 10/17/20 22:59 06:59 14:59 Intake Total 400 Output Total 1350 Balance -950 Lab Results Last 24 Hours: Laboratory Results - last 24 hr 10/16/20 10/16/20 10/16/20 Range/Units 14:16 14:16 14:16 WBC 7.65 (4.0-11.0) K/uL RBC 4.03 L (4.30-5.90) M/uL Hgb 13.4 (12.0-16.0) g/dL Hct 38.0 (36.0-46.0) % MCV 94.3 (80.0-98.0) fL MCH 33.3 H (27.0-32.0) pg MCHC 35.3 (31.0-37.0) g/dL RDW Std Deviation 42.1 (28.0-62.0) fl RDW Coeff of See 12 (11.0-15.0) % Plt Count 260 (150-400) K/uL MPV 10.70 (7.40-12.00) fL Neut % (Auto) 63.2 (48.0-80.0) % Lymph % (Auto) 27.1 (16.0-40.0) % White % (Auto) 6.7 (0.0-15.0) % Eos % (Auto) 2.6 (0.0-7.0) % Baso % (Auto) 0.4 (0.0-1.5) % Neut # (Auto) 4.8 (1.4-5.7) K/uL Lymph # (Auto) 2.1 (0.6-2.4) K/uL White # (Auto) 0.5 (0.0-0.8) K/uL Eos # (Auto) 0.2 (0.0-0.7) K/uL Baso # (Auto) 0.0 (0.0-0.1) K/uL Nucleated RBC % 0.0 /100WBC Nucleated RBCs # 0 K/uL INR APTT (18.6-31.3) SEC Sodium 142 (136-145) mmol/L Potassium 3.6 (3.5-5.1) mmol/L Chloride 107 (98-107) mmol/L Carbon Dioxide 25.9 (21.0-32.0) mmol/L BUN 6 L (7.0-18.0) mg/dL Creatinine 0.8 (0.6-1.0) mg/dL Est Cr Clr Drug Dosing TNP Estimated GFR (MDRD) > 60.0 ml/min Glucose 104 (74-106) mg/dL Calcium 8.9 (8.5-10.1) mg/dL Phosphorus (2.6-4.7) mg/dL Magnesium (1.8-2.4) mg/dL HCG, Qual NEGATIVE (NEG) Fluid Type Fluid Color Fluid Appearance Fluid pH Fluid WBC /uL Fluid RBC /uL Fluid Mononuclear Cell % Fl Polymorphonucl Cell % Fluid Glucose mg/dL Fluid Total Protein g/dL Fluid LDH U/L Fluid Amylase U/L Fluid Cholesterol g/dL Fluid Triglycerides mg/dL SARS-CoV-2 RNA (GAIL) (NEGATIVE) 10/16/20 10/16/20 10/17/20 Range/Units 14:16 15:46 06:51 WBC 8.28 (4.0-11.0) K/uL RBC 3.52 L (4.30-5.90) M/uL Hgb 11.6 L (12.0-16.0) g/dL Hct 33.4 L (36.0-46.0) % MCV 94.9 (80.0-98.0) fL MCH 33.0 H (27.0-32.0) pg MCHC 34.7 (31.0-37.0) g/dL RDW Std Deviation 41.7 (28.0-62.0) fl RDW Coeff of See 12 (11.0-15.0) % Plt Count 225 (150-400) K/uL MPV 10.50 (7.40-12.00) fL Neut % (Auto) 72.2 (48.0-80.0) % Lymph % (Auto) 19.1 (16.0-40.0) % White % (Auto) 6.8 (0.0-15.0) % Eos % (Auto) 1.7 (0.0-7.0) % Baso % (Auto) 0.2 (0.0-1.5) % Neut # (Auto) 6.0 H (1.4-5.7) K/uL Lymph # (Auto) 1.6 (0.6-2.4) K/uL White # (Auto) 0.6 (0.0-0.8) K/uL Eos # (Auto) 0.1 (0.0-0.7) K/uL Baso # (Auto) 0.0 (0.0-0.1) K/uL Nucleated RBC % 0.0 /100WBC Nucleated RBCs # 0 K/uL INR 1.07 APTT 26.3 (18.6-31.3) SEC Sodium (136-145) mmol/L Potassium (3.5-5.1) mmol/L Chloride (98-107) mmol/L Carbon Dioxide (21.0-32.0) mmol/L BUN (7.0-18.0) mg/dL Creatinine (0.6-1.0) mg/dL Est Cr Clr Drug Dosing Estimated GFR (MDRD) ml/min Glucose (74-106) mg/dL Calcium (8.5-10.1) mg/dL Phosphorus (2.6-4.7) mg/dL Magnesium (1.8-2.4) mg/dL HCG, Qual (NEG) Fluid Type Fluid Color Fluid Appearance Fluid pH Fluid WBC /uL Fluid RBC /uL Fluid Mononuclear Cell % Fl Polymorphonucl Cell % Fluid Glucose mg/dL Fluid Total Protein g/dL Fluid LDH U/L Fluid Amylase U/L Fluid Cholesterol g/dL Fluid Triglycerides mg/dL SARS-CoV-2 RNA (GAIL) NEGATIVE (NEGATIVE) 10/17/20 10/17/20 Range/Units 06:51 07:20 WBC (4.0-11.0) K/uL RBC (4.30-5.90) M/uL Hgb (12.0-16.0) g/dL Hct (36.0-46.0) % MCV (80.0-98.0) fL MCH (27.0-32.0) pg MCHC (31.0-37.0) g/dL RDW Std Deviation (28.0-62.0) fl RDW Coeff of See (11.0-15.0) % Plt Count (150-400) K/uL MPV (7.40-12.00) fL Neut % (Auto) (48.0-80.0) % Lymph % (Auto) (16.0-40.0) % White % (Auto) (0.0-15.0) % Eos % (Auto) (0.0-7.0) % Baso % (Auto) (0.0-1.5) % Neut # (Auto) (1.4-5.7) K/uL Lymph # (Auto) (0.6-2.4) K/uL White # (Auto) (0.0-0.8) K/uL Eos # (Auto) (0.0-0.7) K/uL Baso # (Auto) (0.0-0.1) K/uL Nucleated RBC % /100WBC Nucleated RBCs # K/uL INR APTT (18.6-31.3) SEC Sodium 139 (136-145) mmol/L Potassium 3.6 (3.5-5.1) mmol/L Chloride 106 (98-107) mmol/L Carbon Dioxide 23.1 (21.0-32.0) mmol/L BUN 4 L (7.0-18.0) mg/dL Creatinine 0.7 (0.6-1.0) mg/dL Est Cr Clr Drug Dosing 124.18 Estimated GFR (MDRD) > 60.0 ml/min Glucose 123 H (74-106) mg/dL Calcium 8.1 L (8.5-10.1) mg/dL Phosphorus 3.4 (2.6-4.7) mg/dL Magnesium 2.1 (1.8-2.4) mg/dL HCG, Qual (NEG) Fluid Type PL Fluid Color RED Fluid Appearance BLOODY Fluid pH 8.0 Fluid WBC 8248 /uL Fluid RBC 69032 /uL Fluid Mononuclear Cell 27 % Fl Polymorphonucl Cell 73 % Fluid Glucose 85 mg/dL Fluid Total Protein 3.2 g/dL Fluid LDH 1130 U/L Fluid Amylase 21 U/L Fluid Cholesterol 54.0 g/dL Fluid Triglycerides 32 mg/dL SARS-CoV-2 RNA (GAIL) (NEGATIVE) Jefe Results Last 24 Hours: Microbiology 10/17/20 07:20 Gram Stain - Final Pleural Fluid Med Orders - Current: Current Medications Acetaminophen (Acetaminophen 325 Mg Tab) 650 mg PO Q4H PRN PRN Reason: Pain (Mild 1-3)/fever Albuterol/Ipratropium (Albuterol/Ipratropium 3.0-0.5 Mg/3 Ml Neb Soln) 3 ml NEB Q4HRRT PRN PRN Reason: Shortness Of Breath/wheezing Lactated Ringer's (Ringers, Lactated) 1,000 mls @ 125 mls/hr IV ASDIRECTED [facility] Last Admin: 10/17/20 06:56 Dose: 125 mls/hr Documented by: Pantoprazole Sodium 40 mg/ (Sodium Chloride) 10 mls @ 300 mls/hr IV DAILY [facility] Last Admin: 10/17/20 08:42 Dose: 300 mls/hr Documented by: Morphine Sulfate (Morphine 2 Mg/Ml Syringe) 1 mg IVPUSH Q4H PRN PRN Reason: Pain (severe 7-10) Last Admin: 10/17/20 04:14 Dose: 1 mg Documented by: Ondansetron HCl (Ondansetron 4 Mg/2 Ml Sdv) 4 mg IVPUSH Q4H PRN PRN Reason: Nausea/Vomiting Discontinued Medications Sodium Chloride (Normal Saline) 1,000 mls @ 1,000 mls/hr IV .Bolus ONE Stop: 10/16/20 16:53 Last Admin: 10/16/20 15:57 Dose: 1,000 mls/hr Documented by: Cefazolin Sodium/Dextrose 1 gm (/ Premix) 50 mls @ 100 mls/hr IV ONETIME ONE Stop: 10/16/20 19:35 Last Admin: 10/16/20 19:45 Dose: 100 mls/hr Documented by: Lidocaine/Epinephrine (Lidocaine 1% With Epinephrine 1:100,000 20 Ml Mdv) 20 ml INJECT ONETIME ONE Stop: 10/16/20 15:45 Last Admin: 10/16/20 15:57 Dose: 20 ml Documented by: Lidocaine/Epinephrine (Lidocaine 1% With Epinephrine 1:100,000 20 Ml Mdv) Confirm Administered Dose 20 ml .ROUTE .STK-MED ONE Stop: 10/16/20 15:45 Last Admin: 10/16/20 15:52 Dose: Not Given Documented by: Midazolam HCl (Midazolam 1 Mg/Ml 2 Ml Sdv) Confirm Administered Dose 2 mg .ROUTE .STK-MED ONE Stop: 10/16/20 16:22 Last Admin: 10/17/20 02:31 Dose: Not Given Documented by: Morphine Sulfate (Morphine 4 Mg/Ml Syringe) Confirm Administered Dose 4 mg .ROUTE .STK-MED ONE Stop: 10/16/20 17:07 Last Admin: 10/16/20 17:23 Dose: Not Given Documented by: Morphine Sulfate (Morphine 4 Mg/Ml Syringe) 4 mg IVPUSH ONETIME ONE Stop: 10/16/20 17:23 Last Admin: 10/16/20 17:23 Dose: 4 mg Documented by: Morphine Sulfate (Morphine 10 Mg/Ml Syringe) 1 mg IVPUSH Q4H PRN PRN Reason: Pain (severe 7-10) Stop: 10/17/20 19:56 Propofol (Propofol 200 Mg/20 Ml Sdv) Confirm Administered Dose 200 mg .ROUTE .STK-MED ONE Stop: 10/16/20 16:22 Last Admin: 10/17/20 02:31 Dose: Not Given Documented by: - Exam General: Alert, Oriented Neck: Supple Lungs: Clear to Auscultation, Normal Respiratory Effort Cardiovascular: Regular Rate, Regular Rhythm GI/Abdominal Exam: Normal Bowel Sounds, Soft, Non-Tender Back Exam: Normal Inspection, Full Range of Motion - Patient Data Lab Results Last 24 hrs: Laboratory Results - last 24 hr 10/16/20 10/16/20 10/16/20 Range/Units 14:16 14:16 14:16 WBC 7.65 (4.0-11.0) K/uL RBC 4.03 L (4.30-5.90) M/uL Hgb 13.4 (12.0-16.0) g/dL Hct 38.0 (36.0-46.0) % MCV 94.3 (80.0-98.0) fL MCH 33.3 H (27.0-32.0) pg MCHC 35.3 (31.0-37.0) g/dL RDW Std Deviation 42.1 (28.0-62.0) fl RDW Coeff of See 12 (11.0-15.0) % Plt Count 260 (150-400) K/uL MPV 10.70 (7.40-12.00) fL Neut % (Auto) 63.2 (48.0-80.0) % Lymph % (Auto) 27.1 (16.0-40.0) % White % (Auto) 6.7 (0.0-15.0) % Eos % (Auto) 2.6 (0.0-7.0) % Baso % (Auto) 0.4 (0.0-1.5) % Neut # (Auto) 4.8 (1.4-5.7) K/uL Lymph # (Auto) 2.1 (0.6-2.4) K/uL White # (Auto) 0.5 (0.0-0.8) K/uL Eos # (Auto) 0.2 (0.0-0.7) K/uL Baso # (Auto) 0.0 (0.0-0.1) K/uL Nucleated RBC % 0.0 /100WBC Nucleated RBCs # 0 K/uL INR APTT (18.6-31.3) SEC Sodium 142 (136-145) mmol/L Potassium 3.6 (3.5-5.1) mmol/L Chloride 107 (98-107) mmol/L Carbon Dioxide 25.9 (21.0-32.0) mmol/L BUN 6 L (7.0-18.0) mg/dL Creatinine 0.8 (0.6-1.0) mg/dL Est Cr Clr Drug Dosing TNP Estimated GFR (MDRD) > 60.0 ml/min Glucose 104 (74-106) mg/dL Calcium 8.9 (8.5-10.1) mg/dL Phosphorus (2.6-4.7) mg/dL Magnesium (1.8-2.4) mg/dL HCG, Qual NEGATIVE (NEG) Fluid Type Fluid Color Fluid Appearance Fluid pH Fluid WBC /uL Fluid RBC /uL Fluid Mononuclear Cell % Fl Polymorphonucl Cell % Fluid Glucose mg/dL Fluid Total Protein g/dL Fluid LDH U/L Fluid Amylase U/L Fluid Cholesterol g/dL Fluid Triglycerides mg/dL SARS-CoV-2 RNA (GAIL) (NEGATIVE) 10/16/20 10/16/20 10/17/20 Range/Units 14:16 15:46 06:51 WBC 8.28 (4.0-11.0) K/uL RBC 3.52 L (4.30-5.90) M/uL Hgb 11.6 L (12.0-16.0) g/dL Hct 33.4 L (36.0-46.0) % MCV 94.9 (80.0-98.0) fL MCH 33.0 H (27.0-32.0) pg MCHC 34.7 (31.0-37.0) g/dL RDW Std Deviation 41.7 (28.0-62.0) fl RDW Coeff of See 12 (11.0-15.0) % Plt Count 225 (150-400) K/uL MPV 10.50 (7.40-12.00) fL Neut % (Auto) 72.2 (48.0-80.0) % Lymph % (Auto) 19.1 (16.0-40.0) % White % (Auto) 6.8 (0.0-15.0) % Eos % (Auto) 1.7 (0.0-7.0) % Baso % (Auto) 0.2 (0.0-1.5) % Neut # (Auto) 6.0 H (1.4-5.7) K/uL Lymph # (Auto) 1.6 (0.6-2.4) K/uL White # (Auto) 0.6 (0.0-0.8) K/uL Eos # (Auto) 0.1 (0.0-0.7) K/uL Baso # (Auto) 0.0 (0.0-0.1) K/uL Nucleated RBC % 0.0 /100WBC Nucleated RBCs # 0 K/uL INR 1.07 APTT 26.3 (18.6-31.3) SEC Sodium (136-145) mmol/L Potassium (3.5-5.1) mmol/L Chloride (98-107) mmol/L Carbon Dioxide (21.0-32.0) mmol/L BUN (7.0-18.0) mg/dL Creatinine (0.6-1.0) mg/dL Est Cr Clr Drug Dosing Estimated GFR (MDRD) ml/min Glucose (74-106) mg/dL Calcium (8.5-10.1) mg/dL Phosphorus (2.6-4.7) mg/dL Magnesium (1.8-2.4) mg/dL HCG, Qual (NEG) Fluid Type Fluid Color Fluid Appearance Fluid pH Fluid WBC /uL Fluid RBC /uL Fluid Mononuclear Cell % Fl Polymorphonucl Cell % Fluid Glucose mg/dL Fluid Total Protein g/dL Fluid LDH U/L Fluid Amylase U/L Fluid Cholesterol g/dL Fluid Triglycerides mg/dL SARS-CoV-2 RNA (GAIL) NEGATIVE (NEGATIVE) 10/17/20 10/17/20 Range/Units 06:51 07:20 WBC (4.0-11.0) K/uL RBC (4.30-5.90) M/uL Hgb (12.0-16.0) g/dL Hct (36.0-46.0) % MCV (80.0-98.0) fL MCH (27.0-32.0) pg MCHC (31.0-37.0) g/dL RDW Std Deviation (28.0-62.0) fl RDW Coeff of See (11.0-15.0) % Plt Count (150-400) K/uL MPV (7.40-12.00) fL Neut % (Auto) (48.0-80.0) % Lymph % (Auto) (16.0-40.0) % White % (Auto) (0.0-15.0) % Eos % (Auto) (0.0-7.0) % Baso % (Auto) (0.0-1.5) % Neut # (Auto) (1.4-5.7) K/uL Lymph # (Auto) (0.6-2.4) K/uL White # (Auto) (0.0-0.8) K/uL Eos # (Auto) (0.0-0.7) K/uL Baso # (Auto) (0.0-0.1) K/uL Nucleated RBC % /100WBC Nucleated RBCs # K/uL INR APTT (18.6-31.3) SEC Sodium 139 (136-145) mmol/L Potassium 3.6 (3.5-5.1) mmol/L Chloride 106 (98-107) mmol/L Carbon Dioxide 23.1 (21.0-32.0) mmol/L BUN 4 L (7.0-18.0) mg/dL Creatinine 0.7 (0.6-1.0) mg/dL Est Cr Clr Drug Dosing 124.18 Estimated GFR (MDRD) > 60.0 ml/min Glucose 123 H (74-106) mg/dL Calcium 8.1 L (8.5-10.1) mg/dL Phosphorus 3.4 (2.6-4.7) mg/dL Magnesium 2.1 (1.8-2.4) mg/dL HCG, Qual (NEG) Fluid Type PL Fluid Color RED Fluid Appearance BLOODY Fluid pH 8.0 Fluid WBC 8248 /uL Fluid RBC 00483 /uL Fluid Mononuclear Cell 27 % Fl Polymorphonucl Cell 73 % Fluid Glucose 85 mg/dL Fluid Total Protein 3.2 g/dL Fluid LDH 1130 U/L Fluid Amylase 21 U/L Fluid Cholesterol 54.0 g/dL Fluid Triglycerides 32 mg/dL SARS-CoV-2 RNA (GAIL) (NEGATIVE) Result Diagrams: 10/17/20 06:51 10/17/20 06:51 Jefe Results Last 24 hrs: Microbiology 10/17/20 07:20 Gram Stain - Final Pleural Fluid Sepsis Event Note - Evaluation Sepsis Screening Result: No Definite Risk - Focused Exam Vital Signs: Vital Signs Temp Pulse Resp BP Pulse Ox 10/17/20 08:42 36.4 C 75 17 107/68 100 10/17/20 04:00 36.3 C 82 17 117/68 97 10/17/20 00:00 36.6 C 87 16 107/63 98 - Problem List & Annotations (1) Pneumothorax on left SNOMED Code(s): 255432573 Code(s): J93.9 - PNEUMOTHORAX, UNSPECIFIED Status: Acute Current Visit: Yes - Problem List Review Problem List Initiated/Reviewed/Updated: Yes - My Orders Last 24 Hours: My Active Orders 10/16/20 Dinner Clear Liquid Diet [DIET] 10/16/20 19:55 Ambulate [RC] ASDIRECTED Oxygen Therapy [RC] PRN VTE/DVT Education [RC] PER UNIT ROUTINE Vital Signs [RC] Q4H Acetaminophen [TylenoL] 650 mg PO Q4H PRN Albuterol/Ipratropium [DuoNeb 3.0-0.5 MG/3 ML] 3 ml NEB Q4HRRT PRN Ondansetron [Zofran] 4 mg IVPUSH Q4H PRN Sequential Compression Device [OM.PC] Per Unit Routine Resuscitation Status Routine 10/16/20 19:56 Antiembolic Devices [RC] PER UNIT ROUTINE 10/16/20 19:57 RT Aerosol Therapy [RC] ASDIRECTED 10/16/20 20:00 Lactated Ringers [Ringers, Lactated] 1,000 ml IV ASDIRECTED 10/16/20 20:30 Telemetry Monitoring [Cardiac Monitoring] [RC] Q8H 10/16/20 22:32 Morphine 1 mg IVPUSH Q4H PRN 10/17/20 00:16 IS (RT) [RT Incentive Spirometry] [RC] Q2HWA 10/17/20 00:24 LACTATE DEHYDROGENASE,BODY FL [BF] Routine 10/17/20 07:20 CULTURE BODY FLUID + SMEAR [RM] Routine 10/17/20 09:00 Pantoprazole [ProTONIX IV] 40 mg Sodium Chloride 0.9% [Normal Saline] 10 ml IV DAILY - Plan Plan:: 35 y/o F admitted for possible spontaneous pneumothorax cont chest tube management per surgery some drainage noted, sent fluid sample for analysis, fu on results Repeat CXR showed reexpansion Morphine for pain, Zofran for nausea chest tube will be removed later today by surgery possible dc later today or early AM
[2020-10-17 12:23] LABS: BILIRUBIN INDIRECT 0.4
--- NOTE | 2020-10-17 12:30 | PN ---
SUBJECTIVE: The patient is resting comfortably in her bed. She is alert. She says she is feeling much better. She has no complaints this morning. OBJECTIVE: VITAL SIGNS: Temperature is 97.6, pulse is 75, blood pressure 107/68. GENERAL: The patient is sitting comfortably in the room. CHEST: Chest tube is in place, it is on water seal. IMAGING: She did have a chest x-ray this morning, which showed no recurrence or reaccumulation of air. No pneumothorax. ASSESSMENT AND PLAN: This is a pleasant, 35-year-old female, was found to have a pneumothorax yesterday on outpatient chest x-ray. The patient says she has been coughing for 10 years, but having issues for the last 3 years, and they are just worse over the last 3 to 4 months. She had outpatient chest x-ray, which showed pneumothorax. She went to ER, did place a chest tube, which showed full re- expansion of her lung, it has been on water seal over the evening, and x-ray this morning shows it is still expanded. I did go over with the patient later this afternoon, we could remove the chest tube with a followup x-ray. I went over the risks, goals, and alternatives of removing the chest tube. Risks include, but not limited to reaccumulation of the air and the pneumothorax, needing to place a new chest tube. The patient understands. Also went over that she is to follow up with her primary care provider. Did go over exactly why she had the pneumothorax. I did go over with the patient also that she should avoid scuba diving and airplane rides in the near future especially because of her pneumothorax. Did discuss the case with the medicine team. JOANNA GRANGER /[id number]
--- NOTE | 2020-10-17 15:03 | CR ---
INDICATION: Chest tube removed. TECHNIQUE: Chest 1 view. COMPARISON: Chest radiograph 10/17/2020. FINDINGS: Interval removal of the previously seen left basilar chest tube. There is an obliquely oriented lucency projected over the left lower lung which could represent a small loculated pneumothorax versus focal chest wall subcutaneous emphysema. Otherwise no pneumothorax identified. No focal consolidation or pleural effusion. Normal heart size and pulmonary vascularity. The bones are unremarkable. IMPRESSION: 1. Removal of the left chest tube. 2. Indeterminate obliquely oriented lucency projected over the left lower lung which could represent a small loculated pneumothorax versus chest wall subcutaneous emphysema. Dictated by Debby Hernandez MD @ Oct 17 2020 2:59PM Signed by Dr. Debby Hernandez @ Oct 17 2020 3:02PM
--- NOTE | 2020-10-18 06:25 | CR ---
INDICATION: Post chest tube removal TECHNIQUE: Chest 2 views COMPARISON: October 17, 2020 FINDINGS: Cardiovascular and mediastinum: Heart size and vasculature are normal in caliber and appearance. Lungs and pleural spaces: Lungs are clear. No sign of infiltrate or mass. No sign of pleural effusion. No pneumothorax. Bones and soft tissues: No significant findings. IMPRESSION: Negative chest. No sign of pneumothorax. Dictated by Romaine Ro MD @ Oct 18 2020 6:20AM Signed by Dr. Romaine Ro @ Oct 18 2020 6:23AM
[2020-10-18 06:29] LABS: BLOOD UREA NITROGEN,BUN 6 mg/dL (7.0-18.0); CHLORIDE,CL 107 mmol/L (98-107); GLUCOSE RANDOM 96 mg/dL (74-106); POTASSIUM,K 3.3 mmol/L (3.5-5.1); SODIUM,NA 141 mmol/L (136-145)
--- NOTE | 2020-10-18 06:51 | PN ---
SUBJECTIVE: Earlier this afternoon, her chest tube was pulled. It was pulled out without incident. Chest tube did come out and looked to be fully intact. We did do a post removal of the chest tube x-ray. I did not see any pneumothorax. However, the radiologist made comment of an obliquely oriented lucency over left lower lung, which they said could be a small loculated pneumothorax versus chest wall subcutaneous emphysema. I did discuss the patient with the hospital team, it sounds like they want to keep the patient another day. I would follow up with a chest x-ray in the morning to make sure that this lucency is stable and not growing. All the patient's questions were answered. I did talk to the Medicine team. JOANNA GRANGER /[id number]
[2020-10-18] MEDS: Pantoprazole 40 MG in Sodium Chloride 0.9% 10 ML IV SCH (08:42)
--- NOTE | 2020-10-18 09:33 | PN ---
SUBJECTIVE: The patient has no complaints this morning. She is feeling well. She says she still has a cough that she has had for the past 10 years. She denies any recurrent shortness of breath. OBJECTIVE: GENERAL: The patient is lying comfortably in her bed. She is alert and oriented in no acute distress. VITAL SIGNS: Temperature is 98, pulse 82, blood pressure is 108/62, and saturating 97% on room air. CHEST: Dressing from her chest tube removal is in place from yesterday, had been reinforced with some pink tape. IMAGING: Two-view chest x-ray done this morning showed no signs of pneumothorax. ASSESSMENT AND PLAN: This is a pleasant 35-year-old female who was found as an outpatient to have a pneumothorax. Denies any trauma. Came in and had a chest tube placed. This was removed yesterday. Followup chest x-rays have showed no recurrence of the pneumothorax. I did go over with the patient that she should avoid airplanes and scuba diving until further investigations of the pneumothorax. She should keep her dressing in place for the next 4 days, after that she may remove and replace it with a home bandage. I did go over if the patient has some increased shortness of breath or chest pain, she should come back for further evaluation. The patient is to follow up with her primary care provider. The patient may follow up with me on a p.r.n. basis. I answered the patient's questions. JOANNA GRANGER /[id number]
[2020-10-18] MEDS ORDERED: Potassium Chloride 20 MEQ Tab.ER PO ONE (10:11)
--- NOTE | 2020-10-18 11:50 | PCM.DCSUM1 ---
Discharge Summary - Hospital Course Free Text/Narrative:: Patient is a 35-year-old female who presents today for possible pneumothorax of left side diagnosed on CXR at her PCP office, she has no known PMH except for chronic cough for last last 1 decade which has gotten worse recently. Cough is usually dy and is associated with post nasal drip, . Patient states she was having "pleurisy" and went to her PCP for evaluation who prescribed her rescue inhalers for possible asthma, but her cough got worse, and she also felt SOB on exertion hence CXR was done which she had requested. In the ER CT chest confirmed left sided large pneumothorax, with some fluid as well and associated atelectasis, Chest tube was inserted in ER and patients fu imaging showed reexpansion, patient was admitted for further management. Patient states that she does have slight pain left side as incision sight but otherwise does not have any complaints no shortness of breath nausea vomiting fever chills. Denied smoking, vaping, or any contact sports or trauma history. 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 Diagnosis: Stroke: No - Discharge Data Discharge Date: 10/18/20 Discharge Disposition: Home, Self-Care 01 Condition: Stable - Referral to Home Health Primary Care Physician: PCP None - Discharge Diagnosis/Problem(s) (1) Pneumothorax on left SNOMED Code(s): 073604817 ICD Code: J93.9 - PNEUMOTHORAX, UNSPECIFIED Status: Acute - Patient Summary/Data Consults: Consultations 10/16/20 15:49 Consult to Physician [CONS] Stat - Patient Instructions Diet: Usual Diet as Tolerated Activity: As Tolerated Driving: May Drive Today Showering/Bathing: May Shower Wound/Incision Care: Keep Operative Site/Wound Site Clean and Dry, Do NOT Change Dressing (remove dressing in 4 days and cover with band-aid ) Notify Provider of: Fever, Increased Pain, Swelling and Redness, Drainage, Nausea and/or Vomiting - Discharge Plan *PRESCRIPTION DRUG MONITORING PROGRAM REVIEWED*: Not Applicable *COPY OF PRESCRIPTION DRUG MONITORING REPORT IN PATIENT HOMERO: Not Applicable Prescriptions/Med Rec: Azithromycin 500 mg PO DAILY #5 tablet Acetaminophen [Tylenol] 650 mg PO Q4H PRN #20 tablet PRN Reason: Pain (Mild 1-3)/fever Home Medications: Home Meds methylPREDNISolone [Medrol] 4 mg PO DAILY #21 tab.ds.pk 05/04/17 [Rx] Phentermine HCl 37.5 mg PO DAILY 10/16/20 [History] Acetaminophen [Tylenol] 650 mg PO Q4H PRN #20 tablet 10/18/20 [Rx] Azithromycin 500 mg PO DAILY #5 tablet 10/18/20 [Rx] Patient Handouts: Azithromycin tablets, Acetaminophen tablets or caplets, Pneumothorax, Chest Tube Insertion, Adult, Care After Referrals: Edgar Maguire MD [Ordering Only Provider] - 10/25/20 2:30 pm - Discharge Summary/Plan Comment DC Time >30 min.: No - Patient Data Vitals - Most Recent: Last Vital Signs Temp 36.6 C 10/18/20 08:28 Pulse 82 10/18/20 08:28 Resp 16 10/18/20 08:28 BP 108/62 10/18/20 08:28 Pulse Ox 97 10/18/20 08:28 Weight - Most Recent: 93.485 kg I&O - Last 24 hours: Intake & Output 10/17/20 10/18/20 10/18/20 22:59 06:59 14:59 Intake Total 1080 3400 Output Total 2250 Balance -1170 3400 Lab Results - Last 24 hrs: Laboratory Results - last 24 hr 10/17/20 10/18/20 10/18/20 Range/Units 11:50 05:28 05:28 WBC 8.72 (4.0-11.0) K/uL RBC 3.64 L (4.30-5.90) M/uL Hgb 12.0 (12.0-16.0) g/dL Hct 34.6 L (36.0-46.0) % MCV 95.1 (80.0-98.0) fL MCH 33.0 H (27.0-32.0) pg MCHC 34.7 (31.0-37.0) g/dL RDW Std Deviation 42.5 (28.0-62.0) fl RDW Coeff of See 12 (11.0-15.0) % Plt Count 252 (150-400) K/uL MPV 10.90 (7.40-12.00) fL Neut % (Auto) 68.0 (48.0-80.0) % Lymph % (Auto) 20.0 (16.0-40.0) % [place] % (Auto) 10.1 (0.0-15.0) % Eos % (Auto) 1.7 (0.0-7.0) % Baso % (Auto) 0.2 (0.0-1.5) % Neut # (Auto) 5.9 H (1.4-5.7) K/uL Lymph # (Auto) 1.7 (0.6-2.4) K/uL [place] # (Auto) 0.9 H (0.0-0.8) K/uL Eos # (Auto) 0.2 (0.0-0.7) K/uL Baso # (Auto) 0.0 (0.0-0.1) K/uL Nucleated RBC % 0.0 /100WBC Nucleated RBCs # 0 K/uL Sodium 141 (136-145) mmol/L Potassium 3.3 L (3.5-5.1) mmol/L Chloride 107 (98-107) mmol/L Carbon Dioxide 25.0 (21.0-32.0) mmol/L BUN 6 L (7.0-18.0) mg/dL Creatinine 0.6 (0.6-1.0) mg/dL Est Cr Clr Drug Dosing 144.88 mL/min Estimated GFR (MDRD) > 60.0 ml/min Glucose 96 (74-106) mg/dL Calcium 8.2 L (8.5-10.1) mg/dL Total Bilirubin 0.5 (0.2-1.0) mg/dL Direct Bilirubin 0.10 (0.0-0.5) mg/dL Indirect Bilirubin 0.40 AST 17 (15-37) IU/L ALT 23 (14-63) IU/L Alkaline Phosphatase 72 (46-116) U/L Lactate Dehydrogenase 217 (81-234) U/L Total Protein 6.4 (6.4-8.2) g/dL Albumin 3.3 L (3.4-5.0) g/dL Globulin 3.1 (2.6-4.0) g/dL Albumin/Globulin Ratio 1.1 (0.9-1.6) VERITO Results - Last 24 hrs: Microbiology 10/17/20 07:20 Gram Stain - Final Pleural Fluid Body Fluid Culture - Preliminary NO GROWTH AFTER 1 DAY Med Orders - Current: Current Medications Acetaminophen (Acetaminophen 325 Mg Tab) 650 mg PO Q4H PRN PRN Reason: Pain (Mild 1-3)/fever Albuterol/Ipratropium (Albuterol/Ipratropium 3.0-0.5 Mg/3 Ml Neb Soln) 3 ml NEB Q4HRRT PRN PRN Reason: Shortness Of Breath/wheezing Pantoprazole Sodium 40 mg/ (Sodium Chloride) 10 mls @ 300 mls/hr IV DAILY [facility] Last Admin: 10/18/20 08:42 Dose: 300 mls/hr Documented by: Morphine Sulfate (Morphine 2 Mg/Ml Syringe) 1 mg IVPUSH Q4H PRN PRN Reason: Pain (severe 7-10) Last Admin: 10/17/20 11:56 Dose: 1 mg Documented by: Ondansetron HCl (Ondansetron 4 Mg/2 Ml Sdv) 4 mg IVPUSH Q4H PRN PRN Reason: Nausea/Vomiting Discontinued Medications Sodium Chloride (Normal Saline) 1,000 mls @ 1,000 mls/hr IV .Bolus ONE Stop: 10/16/20 16:53 Last Admin: 10/16/20 15:57 Dose: 1,000 mls/hr Documented by: Cefazolin Sodium/Dextrose 1 gm (/ Premix) 50 mls @ 100 mls/hr IV ONETIME ONE Stop: 10/16/20 19:35 Last Admin: 10/16/20 19:45 Dose: 100 mls/hr Documented by: Lactated Ringer's (Ringers, Lactated) 1,000 mls @ 125 mls/hr IV ASDIRECTED [facility] Last Infusion: 10/17/20 11:45 Dose: 0 mls/hr Documented by: Lidocaine/Epinephrine (Lidocaine 1% With Epinephrine 1:100,000 20 Ml Mdv) 20 ml INJECT ONETIME ONE Stop: 10/16/20 15:45 Last Admin: 10/16/20 15:57 Dose: 20 ml Documented by: Lidocaine/Epinephrine (Lidocaine 1% With Epinephrine 1:100,000 20 Ml Mdv) Confirm Administered Dose 20 ml .ROUTE .STK-MED ONE Stop: 10/16/20 15:45 Last Admin: 10/16/20 15:52 Dose: Not Given Documented by: Midazolam HCl (Midazolam 1 Mg/Ml 2 Ml Sdv) Confirm Administered Dose 2 mg .ROUTE .STK-MED ONE Stop: 10/16/20 16:22 Last Admin: 10/17/20 02:31 Dose: Not Given Documented by: Morphine Sulfate (Morphine 4 Mg/Ml Syringe) Confirm Administered Dose 4 mg .ROUTE .STK-MED ONE Stop: 10/16/20 17:07 Last Admin: 10/16/20 17:23 Dose: Not Given Documented by: Morphine Sulfate (Morphine 4 Mg/Ml Syringe) 4 mg IVPUSH ONETIME ONE Stop: 10/16/20 17:23 Last Admin: 10/16/20 17:23 Dose: 4 mg Documented by: Morphine Sulfate (Morphine 10 Mg/Ml Syringe) 1 mg IVPUSH Q4H PRN PRN Reason: Pain (severe 7-10) Stop: 10/17/20 19:56 Potassium Chloride (Potassium Chloride 20 Meq Tab.Er) 40 meq PO ONETIME ONE Stop: 10/18/20 10:12 Last Admin: 10/18/20 10:26 Dose: 40 meq Documented by: Propofol (Propofol 200 Mg/20 Ml Sdv) Confirm Administered Dose 200 mg .ROUTE .STK-MED ONE Stop: 10/16/20 16:22 Last Admin: 10/17/20 02:31 Dose: Not Given Documented by:
== END 2020-10-18 12:24 | disposition home or self-care (01) ==
LOC: MW.ED 13:48 → MW.MS 19:10
PROVIDERS: ADMIT Student in an Organized Health Care Education/Training Program; ATTEND Student in an Organized Health Care Education/Training Program
DX: J93.9 Pneumothorax, unspecified (principal); J98.11 Atelectasis; Z88.2 Allergy status to sulfonamides; Z79.899 Other long term (current) drug therapy; Z01.812 Encounter for preprocedural laboratory examination; Z20.822 Contact with and (suspected) exposure to COVID-19
CPT/HCPCS: 32551; 36415; 71045; 71046; 71250; 80048; 80076; 82150; 82945; 83615; 83735; 83986; 84100; 84157; 84478; 84703; 85025; 85610; 85730; 87070; 87205; 87635; 89050; 93005; 96365; 96375; 99285; A9270; C9113; J0690; J2250; J2270; J2704; J7030; J7120; 00520; 93010; 96376; G0378; U0002

== ENCOUNTER 2020-11-26 22:02 | Observation (INO) | payer BC ==
--- NOTE | 2020-11-26 22:24 | EDM.PDOC ---
ED HPI GENERAL MEDICAL PROBLEM - General Chief Complaint: Respiratory Problem Stated Complaint: COLLAPSED LUNG Time Seen by Provider: 11/26/20 22:07 Source of Information: Reports: Patient History Limitations: Reports: No Limitations - History of Present Illness INITIAL COMMENTS - FREE TEXT/NARRATIVE: Patient is a 35-year-old female presents today for possible pneumothorax. Gage valdes was seen here about a month ago for spontaneous pneumothorax that required a chest tube. Patient dates that today she had repetitive cough for the pain the left side and had x-ray done that showed a possible pneumonia. Patient has some left-sided pain but denies any shortness of breath fever chills or weakness. Patient denies any trauma to the left side. 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: - Infectious Disease History Infectious Disease History: Reports: Chicken Pox Social & Family History - Family History Family Medical History: No Pertinent Family History - Tobacco Use Tobacco Use Status *Q: Never Tobacco User Second Hand Smoke Exposure: No - Caffeine Use Caffeine Use: Reports: None - Recreational Drug Use Recreational Drug Use: No ED ROS GENERAL - Review of Systems Review Of Systems: See Below Constitutional: Reports: No Symptoms HEENT: Reports: No Symptoms Respiratory: Reports: No Symptoms Cardiovascular: Reports: Chest Pain Endocrine: Reports: No Symptoms GI/Abdominal: Reports: No Symptoms : Reports: No Symptoms Musculoskeletal: Reports: No Symptoms Skin: Reports: No Symptoms Neurological: Reports: No Symptoms Psychiatric: Reports: No Symptoms Hematologic/Lymphatic: Reports: No Symptoms Immunologic: Reports: No Symptoms ED EXAM, GENERAL - Physical Exam Exam: See Below Exam Limited By: No Limitations General Appearance: Alert, WD/WN, No Apparent Distress Eye Exam: Bilateral Eye: EOMI, PERRL Throat/Mouth: Normal Inspection Head: Atraumatic, Normocephalic Neck: Normal Inspection Respiratory/Chest: No Respiratory Distress, Lungs Clear, Normal Breath Sounds Cardiovascular: Normal Peripheral Pulses, Regular Rate, Rhythm GI/Abdominal: Normal Bowel Sounds, Soft, Non-Tender Extremities: Normal Inspection, Normal Range of Motion Neurological: Alert, Oriented, CN II-XII Intact, Normal Cognition, Normal Gait Course - Vital Signs Last Recorded V/S: Last Vital Signs Temp 97.7 F 11/26/20 22:09 Pulse 101 H 11/26/20 22:09 Resp 18 11/26/20 22:09 BP 145/111 H 11/26/20 22:09 Pulse Ox 99 11/26/20 22:09 - Orders/Labs/Meds Orders: Active Orders 24 hr Category Date Time Status CORONAVIRUS COVID-19 GAIL [MOLEC] Stat Lab 11/26/20 23:17 Received Labs: Laboratory Tests 11/26/20 11/26/20 11/26/20 Range/Units 22:15 22:15 22:58 WBC 8.40 (4.0-11.0) K/uL RBC 4.15 L (4.30-5.90) M/uL Hgb 13.9 (12.0-16.0) g/dL Hct 38.9 (36.0-46.0) % MCV 93.7 (80.0-98.0) fL MCH 33.5 H (27.0-32.0) pg MCHC 35.7 (31.0-37.0) g/dL RDW Std Deviation 43.3 (28.0-62.0) fl RDW Coeff of See 13 (11.0-15.0) % Plt Count 257 (150-400) K/uL MPV 10.80 (7.40-12.00) fL Neut % (Auto) 57.1 (48.0-80.0) % Lymph % (Auto) 33.0 (16.0-40.0) % [place] % (Auto) 7.4 (0.0-15.0) % Eos % (Auto) 2.3 (0.0-7.0) % Baso % (Auto) 0.2 (0.0-1.5) % Neut # (Auto) 4.8 (1.4-5.7) K/uL Lymph # (Auto) 2.8 H (0.6-2.4) K/uL [place] # (Auto) 0.6 (0.0-0.8) K/uL Eos # (Auto) 0.2 (0.0-0.7) K/uL Baso # (Auto) 0.0 (0.0-0.1) K/uL Nucleated RBC % 0.0 /100WBC Nucleated RBCs # 0 K/uL INR 1.04 APTT (18.6-31.3) SEC Sodium 140 (136-145) mmol/L Potassium 3.8 (3.5-5.1) mmol/L Chloride 107 (98-107) mmol/L Carbon Dioxide 24.4 (21.0-32.0) mmol/L BUN 12 (7.0-18.0) mg/dL Creatinine 0.8 (0.6-1.0) mg/dL Est Cr Clr Drug Dosing 108.66 mL/min Estimated GFR (MDRD) > 60.0 ml/min Glucose 96 (74-106) mg/dL Calcium 8.3 L (8.5-10.1) mg/dL Total Bilirubin 0.3 (0.2-1.0) mg/dL AST 13 L (15-37) IU/L ALT 20 (14-63) IU/L Alkaline Phosphatase 85 (46-116) U/L Creatine Kinase 77 (26-308) U/L Troponin I < 0.050 (0.000-0.056) ng/mL Total Protein 7.3 (6.4-8.2) g/dL Albumin 3.6 (3.4-5.0) g/dL Globulin 3.7 (2.6-4.0) g/dL Albumin/Globulin Ratio 1.0 (0.9-1.6) 05/25/21 Range/Units 22:58 WBC (4.0-11.0) K/uL RBC (4.30-5.90) M/uL Hgb (12.0-16.0) g/dL Hct (36.0-46.0) % MCV (80.0-98.0) fL MCH (27.0-32.0) pg MCHC (31.0-37.0) g/dL RDW Std Deviation (28.0-62.0) fl RDW Coeff of See (11.0-15.0) % Plt Count (150-400) K/uL MPV (7.40-12.00) fL Neut % (Auto) (48.0-80.0) % Lymph % (Auto) (16.0-40.0) % [place] % (Auto) (0.0-15.0) % Eos % (Auto) (0.0-7.0) % Baso % (Auto) (0.0-1.5) % Neut # (Auto) (1.4-5.7) K/uL Lymph # (Auto) (0.6-2.4) K/uL [place] # (Auto) (0.0-0.8) K/uL Eos # (Auto) (0.0-0.7) K/uL Baso # (Auto) (0.0-0.1) K/uL Nucleated RBC % /100WBC Nucleated RBCs # K/uL INR APTT 26.7 (18.6-31.3) SEC Sodium (136-145) mmol/L Potassium (3.5-5.1) mmol/L Chloride (98-107) mmol/L Carbon Dioxide (21.0-32.0) mmol/L BUN (7.0-18.0) mg/dL Creatinine (0.6-1.0) mg/dL Est Cr Clr Drug Dosing mL/min Estimated GFR (MDRD) ml/min Glucose (74-106) mg/dL Calcium (8.5-10.1) mg/dL Total Bilirubin (0.2-1.0) mg/dL AST (15-37) IU/L ALT (14-63) IU/L Alkaline Phosphatase (46-116) U/L Creatine Kinase (26-308) U/L Troponin I (0.000-0.056) ng/mL Total Protein (6.4-8.2) g/dL Albumin (3.4-5.0) g/dL Globulin (2.6-4.0) g/dL Albumin/Globulin Ratio (0.9-1.6) - Re-Assessments/Exams Free Text/Narrative Re-Assessment/Exam: 11/26/20 23:41 Patient again has a pneumothorax on the left side. Will require chest tube. We spoke to seen by on-call who will feel comfortable doing the chest tube in the OR. We spoke to the general surgeon Dr. Griffin who has agreed to come and take patient to the OR to place a chest tube. Departure - Departure Time of Disposition: 23:42 Disposition: Refer to Observation Condition: Good Clinical Impression: Pneumothorax - Discharge Information *PRESCRIPTION DRUG MONITORING PROGRAM REVIEWED*: Not Applicable *COPY OF PRESCRIPTION DRUG MONITORING REPORT IN PATIENT HOMERO: Not Applicable Referrals: PCP,None [Primary Care Provider] - Forms: ED Department Discharge Critical Care Note - Critical Care Note Total Time (mins): 40 Comments: Critical Care Procedure Note Authorized and Performed by: Dr. Dent Total critical care time: Approximately Due to a high probability of clinically significant, life threatening deterioration, the patient required my highest level of preparedness to intervene emergently and I personally spent this critical care time directly and personally managing the patient. This critical care time included obtaining a history; examining the patient; pulse oximetry; ordering and review of studies; arranging urgent treatment with development of a management plan; evaluation of patient's response to treatment; frequent reassessment; and, discussions with other providers. This critical care time was performed to assess and manage the high probability of imminent, life-threatening deterioration that could result in multi-organ failure. It was exclusive of separately billable procedures and treating other patients and teaching time. Sepsis Event Note (ED) - Evaluation Sepsis Screening Result: No Definite Risk - Focused Exam Vital Signs: Vital Signs Temp Pulse Resp BP Pulse Ox 11/26/20 22:09 97.7 F 101 H 18 145/111 H 99 - My Orders Last 24 Hours: My Active Orders 11/26/20 23:17 CORONAVIRUS COVID-19 GAIL [MOLEC] Stat - Assessment/Plan Last 24 Hours: My Active Orders 11/26/20 23:17 CORONAVIRUS COVID-19 GAIL [MOLEC] Stat Plan: Patient is a 35-year-old female presents today for possible pneumothorax. Will repeat x-ray and reassess patient.
[2020-11-26 22:54] LABS: BLOOD UREA NITROGEN,BUN 12 mg/dL (7.0-18.0); CARBON DIOXIDE,CO2 24.4 mmol/L (21.0-32.0); CHLORIDE,CL 107 mmol/L (98-107); GLUCOSE RANDOM 96 mg/dL (74-106); POTASSIUM,K 3.8 mmol/L (3.5-5.1); SODIUM,NA 140 mmol/L (136-145)
--- NOTE | 2020-11-26 22:54 | CR ---
INDICATION: coughing, pneumothorax TECHNIQUE: Chest radiograph 2 views on 3 films COMPARISON: 10/18/2020 FINDINGS: Mediastinum: The mediastinum is normal in appearance. The heart silhouette is normal in size and morphology. Lung: Both lungs are unremarkable in appearance. No sign of pleural effusion seen. A moderate to large left pneumothorax is present with maximal poor separation of 4.3 cm. Bone and Soft tissue: Unremarkable for age. IMPRESSION: 1. A moderate to large left pneumothorax is present with maximal poor separation of 4.3 cm. This is estimated to be approximately 40% in size. The findings were discussed with Dr. Dent at 10:50 PM. Dictated by Enrike Capps MD @ 11/26/2020 10:49:31 PM Dictated by: Enrike Capps MD @ 11/26/2020 22:52:17 (Electronically Signed)
--- NOTE | 2020-11-26 23:53 | PCM.HP.2 ---
H&P History of Present Illness - General Date of Service: 11/26/20 Admit Problem/Dx: Admission Diagnosis/Problem Admission Diagnosis/Problem Pneumothorax Source of Information: Patient History Limitations: Reports: No Limitations - History of Present Illness Initial Comments - Free Text/Narative: Patient is a 35 year old female who presents today with chest discomfort. She w as admitted about 1 month ago with a spontaneous pneumothorax. She had a chest tube placed with good resolution of the air. She had a follow up appointment with a denture packer this week. Over the past 2 weeks she hasn't been feeling well. She has had a mild dry cough and today felt increasing chest pressure. She was worried she had another pneumothorax and presented to the ER. She denies any fevers or chills. She is not a smoker. She denies any nausea. She was mildly hypertensive on arrival with a HR of 101. Chest xray confirmed a left sided pneumothorax. Left Chest Pain Score (Numeric/FACES): 3 - Related Data Allergies/Adverse Reactions: Allergies Allergy/AdvReac Type Severity Reaction Status Date / Time Sulfa (Sulfonamide Allergy Other Verified 11/26/20 22:19 Antibiotics) Home Medications: Home Meds methylPREDNISolone [Medrol] 4 mg PO DAILY #21 tab.ds.pk 05/04/17 [Rx] Phentermine HCl 37.5 mg PO DAILY 10/16/20 [History] Acetaminophen [Tylenol] 650 mg PO Q4H PRN #20 tablet 10/18/20 [Rx] Azithromycin 500 mg PO DAILY #5 tablet 10/18/20 [Rx] Past Medical History - Past Health History Medical/Surgical History: Denies Medical/Surgical History Respiratory History: Reports: Other (See Below) Other Respiratory History: 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 Exam - Exam Exam: See Below - Vital Signs Vital Signs: Last Vital Signs Temp 36.5 C 11/26/20 22:09 Pulse 101 H 11/26/20 22:09 Resp 18 11/26/20 22:09 BP 145/111 H 11/26/20 22:09 Pulse Ox 99 11/26/20 22:09 Weight: 86.636 kg - Exam General: Alert, Oriented HEENT: Conjunctiva Clear, Mucosa Moist & [place], Posterior Pharynx Clear Neck: Supple, Trachea Midline Lungs: Clear to Auscultation, Normal Respiratory Effort Cardiovascular: Regular Rate, Regular Rhythm GI/Abdominal Exam: Soft, Non-Tender Back Exam: Normal Inspection, Full Range of Motion Extremities: Normal Inspection - Patient Data Lab Results Last 24 hrs: Laboratory Results - last 24 hr 11/26/20 11/26/20 11/26/20 Range/Units 22:15 22:15 22:58 WBC 8.40 (4.0-11.0) K/uL RBC 4.15 L (4.30-5.90) M/uL Hgb 13.9 (12.0-16.0) g/dL Hct 38.9 (36.0-46.0) % MCV 93.7 (80.0-98.0) fL MCH 33.5 H (27.0-32.0) pg MCHC 35.7 (31.0-37.0) g/dL RDW Std Deviation 43.3 (28.0-62.0) fl RDW Coeff of See 13 (11.0-15.0) % Plt Count 257 (150-400) K/uL MPV 10.80 (7.40-12.00) fL Neut % (Auto) 57.1 (48.0-80.0) % Lymph % (Auto) 33.0 (16.0-40.0) % [place] % (Auto) 7.4 (0.0-15.0) % Eos % (Auto) 2.3 (0.0-7.0) % Baso % (Auto) 0.2 (0.0-1.5) % Neut # (Auto) 4.8 (1.4-5.7) K/uL Lymph # (Auto) 2.8 H (0.6-2.4) K/uL [place] # (Auto) 0.6 (0.0-0.8) K/uL Eos # (Auto) 0.2 (0.0-0.7) K/uL Baso # (Auto) 0.0 (0.0-0.1) K/uL Nucleated RBC % 0.0 /100WBC Nucleated RBCs # 0 K/uL INR 1.04 APTT (18.6-31.3) SEC Sodium 140 (136-145) mmol/L Potassium 3.8 (3.5-5.1) mmol/L Chloride 107 (98-107) mmol/L Carbon Dioxide 24.4 (21.0-32.0) mmol/L BUN 12 (7.0-18.0) mg/dL Creatinine 0.8 (0.6-1.0) mg/dL Est Cr Clr Drug Dosing 108.66 mL/min Estimated GFR (MDRD) > 60.0 ml/min Glucose 96 (74-106) mg/dL Calcium 8.3 L (8.5-10.1) mg/dL Total Bilirubin 0.3 (0.2-1.0) mg/dL AST 13 L (15-37) IU/L ALT 20 (14-63) IU/L Alkaline Phosphatase 85 (46-116) U/L Creatine Kinase 77 (26-308) U/L Troponin I < 0.050 (0.000-0.056) ng/mL Total Protein 7.3 (6.4-8.2) g/dL Albumin 3.6 (3.4-5.0) g/dL Globulin 3.7 (2.6-4.0) g/dL Albumin/Globulin Ratio 1.0 (0.9-1.6) /25/21 Range/Units 22:58 WBC (4.0-11.0) K/uL RBC (4.30-5.90) M/uL Hgb (12.0-16.0) g/dL Hct (36.0-46.0) % MCV (80.0-98.0) fL MCH (27.0-32.0) pg MCHC (31.0-37.0) g/dL RDW Std Deviation (28.0-62.0) fl RDW Coeff of See (11.0-15.0) % Plt Count (150-400) K/uL MPV (7.40-12.00) fL Neut % (Auto) (48.0-80.0) % Lymph % (Auto) (16.0-40.0) % [place] % (Auto) (0.0-15.0) % Eos % (Auto) (0.0-7.0) % Baso % (Auto) (0.0-1.5) % Neut # (Auto) (1.4-5.7) K/uL Lymph # (Auto) (0.6-2.4) K/uL [place] # (Auto) (0.0-0.8) K/uL Eos # (Auto) (0.0-0.7) K/uL Baso # (Auto) (0.0-0.1) K/uL Nucleated RBC % /100WBC Nucleated RBCs # K/uL INR APTT 26.7 (18.6-31.3) SEC Sodium (136-145) mmol/L Potassium (3.5-5.1) mmol/L Chloride (98-107) mmol/L Carbon Dioxide (21.0-32.0) mmol/L BUN (7.0-18.0) mg/dL Creatinine (0.6-1.0) mg/dL Est Cr Clr Drug Dosing mL/min Estimated GFR (MDRD) ml/min Glucose (74-106) mg/dL Calcium (8.5-10.1) mg/dL Total Bilirubin (0.2-1.0) mg/dL AST (15-37) IU/L ALT (14-63) IU/L Alkaline Phosphatase (46-116) U/L Creatine Kinase (26-308) U/L Troponin I (0.000-0.056) ng/mL Total Protein (6.4-8.2) g/dL Albumin (3.4-5.0) g/dL Globulin (2.6-4.0) g/dL Albumin/Globulin Ratio (0.9-1.6) Result Diagrams: 11/26/20 22:15 11/26/20 22:15 Sepsis Event Note - Evaluation Sepsis Screening Result: No Definite Risk - Focused Exam Vital Signs: Vital Signs Temp Pulse Resp BP Pulse Ox 11/26/20 22:09 36.5 C 101 H 18 145/111 H 99 - Problem List (1) Pneumothorax on left SNOMED Code(s): 350226278 ICD Code: J93.9 - PNEUMOTHORAX, UNSPECIFIED Status: Acute Current Visit: No Problem List Initiated/Reviewed/Updated: Yes Orders Last 24hrs: Active Orders 24 hr Category Date Time Status Patient Status [ADT] Routine ADT 11/26/20 23:43 Active CORONAVIRUS COVID-19 GAIL [MOLEC] Stat Lab 11/26/20 23:17 Received Assessment/Plan Comment:: The patient and I discussed the findings on CXR. I am not sure what the etiology of her spontaneous pneumothorax may be however we talked about the possibility of blebs and or soft tissue disorders that can sometimes cause this. Will place a left sided chest tube today. Will go to the OR to place this so that we can perform conscious sedation. The patient and I discussed the procedure, expected perioperative course and the risks of bleeding infection or damage to barajas rrounding structures. She verbalized understanding and wishes to proceed. Tomorrow I will call pulmonology and/or thoracic surgery to determine if patient needs to be transfered for possible VATs and/or pleurodesis.
[2020-11-27] MEDS ORDERED: fentaNYL 100 MCG/2 ML SDV ONE (00:08)
[2020-11-27] MEDS ORDERED: Propofol 200 MG/20 ML SDV ONE (00:08)
[2020-11-27] MEDS ORDERED: Midazolam 1 MG/ML 2 ML SDV ONE (00:09)
[2020-11-27] MEDS ORDERED: Lidocaine 2% 5 ML SDV ONE (00:10)
[2020-11-27] MEDS ORDERED: Glycopyrrolate 0.2 MG/ML SDV ONE (00:10)
[2020-11-27] MEDS ORDERED: Sugammadex Sodium 200 MG/2 ML VIAL ONE (00:10)
[2020-11-27] MEDS ORDERED: Ondansetron 4 MG/2 ML SDV ONE ×2 (00:10→03:17)
[2020-11-27] MEDS ORDERED: Rocuronium Bromide 50 MG/5 ML Syringe ONE (00:10)
[2020-11-27] MEDS ORDERED: Ketorolac 30 MG/ML SDV ONE (00:10)
[2020-11-27] MEDS ORDERED: Sodium Chloride 0.9% 20 ML ONE (00:13)
[2020-11-27] MEDS ORDERED: ceFAZolin 1 GM Vial ONE (00:13)
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
[2020-11-27] MEDS ORDERED: Acetaminophen 1,000 MG in Premix Bag 1 BAG IV PRN (00:55)
--- NOTE | 2020-11-27 01:22 | PCM.OPNOTE ---
- General Post-Op/Procedure Note Date of Surgery/Procedure: 11/27/20 Operative Procedure(s): Left thoracostomy tube placement Findings: Left sided chest tube placement for spontaneous left sided pneumothorax. Secure at 13 cm at the skin Pre Op Diagnosis: Left sided spontaneous pneumothorax Post-Op Diagnosis: same Anesthesia Technique: General ET Tube Primary Surgeon: Shelbi Rogers Fluid Replacement, Intraop: 600 EBL in mLs: 3 Drain/Tube Comments:: 24 Fr. Chest tube Condition: Stable
[2020-11-27] MEDS ORDERED: diphenhydrAMINE 50 MG/ML SDV IVPUSH PRN (01:23)
[2020-11-27] MEDS ORDERED: Sodium Chloride 0.9% 10 ML Syringe FLUSH PRN (01:23)
[2020-11-27] MEDS ORDERED: Sodium Chloride 0.9% 2.5 ML Syringe FLUSH PRN (01:23)
[2020-11-27] MEDS ORDERED: Acetaminophen/oxyCODONE 325-5 MG Tab PO PRN (01:23)
[2020-11-27] MEDS ORDERED: Sodium Chloride 0.9% 10 ML SDV IV PRN (01:23)
[2020-11-27] MEDS ORDERED: HYDROmorphone 1 MG/ML Syringe IVPUSH PRN (01:23)
[2020-11-27] MEDS ORDERED: Benzonatate 100 MG Cap PO PRN (01:26)
[2020-11-27] MEDS ORDERED: Cyclobenzaprine 5 MG Tab PO PRN (01:27)
--- NOTE | 2020-11-27 01:27 | PCM.POSTAN ---
POST ANESTHESIA ASSESSMENT - MENTAL STATUS Mental Status: Alert - VITAL SIGNS Vital Signs: Last Vital Signs Temp 36.5 C 11/26/20 22:09 Pulse 83 11/27/20 00:20 Resp 19 11/27/20 00:20 BP 117/65 11/27/20 00:20 Pulse Ox 98 11/27/20 00:20 - RESPIRATORY Respiratory Status: Respiratory Rate WNL - CARDIOVASCULAR CV Status: Pulse Rate WNL - GASTROINTESTINAL GI Status: No Symptoms - POST OP HYDRATION Hydration Status: Adequate & Stable
[2020-11-27] MEDS: fentaNYL 100 MCG/2 ML SDV IVPUSH PRN ×2 (01:32→01:39)
--- NOTE | 2020-11-27 01:37 | CR ---
INDICATION: Pneumothorax status post chest tube placement TECHNIQUE: Chest radiograph 1 view COMPARISON: 11/26/2020 FINDINGS: Mediastinum: The mediastinum is normal in appearance. The heart silhouette is normal in size and morphology. The left pneumothorax has essentially resolved with placement of a left apical chest tube. Lung: Minimal left basilar atelectasis is seen. No sign of pleural effusion seen. Bone and Soft tissue: Unremarkable for age. IMPRESSION: 1. The left pneumothorax has essentially resolved with placement of a left apical chest tube. Dictated by Enrike Capps MD @ 11/27/2020 1:36:16 AM Dictated by: Enrike Capps MD @ 11/27/2020 01:36:20 (Electronically Signed)
[2020-11-27] MEDS ORDERED: Bupivacaine 0.5% 10 ML SDV ONE (01:48)
[2020-11-27] MEDS ORDERED: Lidocaine 1% with EPINEPHrine 1:100,000 20 ML MDV ONE (01:48)
[2020-11-27] MEDS ORDERED: Ondansetron 4 MG/2 ML SDV IVPUSH ONE (03:26)
[2020-11-27] MEDS ORDERED: Ondansetron 4 MG/2 ML SDV IVPUSH PRN (06:00)
[2020-11-27] MEDS: Ketorolac 30 MG/ML SDV IVPUSH SCH ×2 (06:15→11:57)
--- NOTE | 2020-11-27 07:41 | PCM48HPAN ---
Post Anesthesia Note - EVALUATION WITHIN 48HRS OF ANESTHETIC Vital Signs in Normal Range: Yes Patient Participated in Evaluation: Yes Respiratory Function Stable: Yes Airway Patent: Yes Cardiovascular Function Stable: Yes Hydration Status Stable: Yes Pain Control Satisfactory: Yes Nausea and Vomiting Control Satisfactory: Yes Mental Status Recovered: Yes Vital Signs: Last Vital Signs Temp 35.9 C L 11/27/20 02:09 Pulse 78 11/27/20 06:00 Resp 16 11/27/20 06:00 BP 106/56 L 11/27/20 06:00 Pulse Ox 100 11/27/20 06:00
[2020-11-27] MEDS ORDERED: Morphine 2 MG/ML SYRINGE IVPUSH PRN (11:43)
--- NOTE | 2020-11-27 13:48 | PCM.SURGPN ---
- General Info Date of Service: 11/27/20 POD#: 0 - Review of Systems General: Reports: No Symptoms, Other (nauseated with dilaudid ) HEENT: Reports: No Symptoms Pulmonary: Reports: Pleuritic Chest Pain Cardiovascular: Reports: No Symptoms Gastrointestinal: Reports: No Symptoms Genitourinary: Reports: No Symptoms Musculoskeletal: Reports: No Symptoms - Patient Data Vitals - Most Recent: Last Vital Signs Temp 36 C L 11/27/20 12:55 Pulse 77 11/27/20 12:55 Resp 17 11/27/20 12:55 BP 106/66 11/27/20 12:55 Pulse Ox 100 11/27/20 12:55 Weight - Most Recent: 86.183 kg I&O - Last 24 Hours: Intake & Output 11/26/20 11/27/20 11/27/20 22:59 06:59 14:59 Intake Total 1500 Output Total 25 Balance 1500 -25 Lab Results Last 24 Hrs: Laboratory Results - last 24 hr 11/26/20 11/26/20 11/26/20 Range/Units 22:15 22:15 22:15 WBC 8.40 (4.0-11.0) K/uL RBC 4.15 L (4.30-5.90) M/uL Hgb 13.9 (12.0-16.0) g/dL Hct 38.9 (36.0-46.0) % MCV 93.7 (80.0-98.0) fL MCH 33.5 H (27.0-32.0) pg MCHC 35.7 (31.0-37.0) g/dL RDW Std Deviation 43.3 (28.0-62.0) fl RDW Coeff of See 13 (11.0-15.0) % Plt Count 257 (150-400) K/uL MPV 10.80 (7.40-12.00) fL Neut % (Auto) 57.1 (48.0-80.0) % Lymph % (Auto) 33.0 (16.0-40.0) % [place] % (Auto) 7.4 (0.0-15.0) % Eos % (Auto) 2.3 (0.0-7.0) % Baso % (Auto) 0.2 (0.0-1.5) % Neut # (Auto) 4.8 (1.4-5.7) K/uL Lymph # (Auto) 2.8 H (0.6-2.4) K/uL [place] # (Auto) 0.6 (0.0-0.8) K/uL Eos # (Auto) 0.2 (0.0-0.7) K/uL Baso # (Auto) 0.0 (0.0-0.1) K/uL Nucleated RBC % 0.0 /100WBC Nucleated RBCs # 0 K/uL INR APTT (18.6-31.3) SEC Sodium 140 (136-145) mmol/L Potassium 3.8 (3.5-5.1) mmol/L Chloride 107 (98-107) mmol/L Carbon Dioxide 24.4 (21.0-32.0) mmol/L BUN 12 (7.0-18.0) mg/dL Creatinine 0.8 (0.6-1.0) mg/dL Est Cr Clr Drug Dosing 108.66 mL/min Estimated GFR (MDRD) > 60.0 ml/min Glucose 96 (74-106) mg/dL Calcium 8.3 L (8.5-10.1) mg/dL Total Bilirubin 0.3 (0.2-1.0) mg/dL AST 13 L (15-37) IU/L ALT 20 (14-63) IU/L Alkaline Phosphatase 85 (46-116) U/L Creatine Kinase 77 (26-308) U/L Troponin I < 0.050 (0.000-0.056) ng/mL Total Protein 7.3 (6.4-8.2) g/dL Albumin 3.6 (3.4-5.0) g/dL Globulin 3.7 (2.6-4.0) g/dL Albumin/Globulin Ratio 1.0 (0.9-1.6) HCG, Qual NEGATIVE (NEG) SARS-CoV-2 RNA (GAIL) (NEGATIVE) 11/26/20 11/26/20 11/26/20 Range/Units 22:58 22:58 23:17 WBC (4.0-11.0) K/uL RBC (4.30-5.90) M/uL Hgb (12.0-16.0) g/dL Hct (36.0-46.0) % MCV (80.0-98.0) fL MCH (27.0-32.0) pg MCHC (31.0-37.0) g/dL RDW Std Deviation (28.0-62.0) fl RDW Coeff of See (11.0-15.0) % Plt Count (150-400) K/uL MPV (7.40-12.00) fL Neut % (Auto) (48.0-80.0) % Lymph % (Auto) (16.0-40.0) % [place] % (Auto) (0.0-15.0) % Eos % (Auto) (0.0-7.0) % Baso % (Auto) (0.0-1.5) % Neut # (Auto) (1.4-5.7) K/uL Lymph # (Auto) (0.6-2.4) K/uL [place] # (Auto) (0.0-0.8) K/uL Eos # (Auto) (0.0-0.7) K/uL Baso # (Auto) (0.0-0.1) K/uL Nucleated RBC % /100WBC Nucleated RBCs # K/uL INR 1.04 APTT 26.7 (18.6-31.3) SEC Sodium (136-145) mmol/L Potassium (3.5-5.1) mmol/L Chloride (98-107) mmol/L Carbon Dioxide (21.0-32.0) mmol/L BUN (7.0-18.0) mg/dL Creatinine (0.6-1.0) mg/dL Est Cr Clr Drug Dosing mL/min Estimated GFR (MDRD) ml/min Glucose (74-106) mg/dL Calcium (8.5-10.1) mg/dL Total Bilirubin (0.2-1.0) mg/dL AST (15-37) IU/L ALT (14-63) IU/L Alkaline Phosphatase (46-116) U/L Creatine Kinase (26-308) U/L Troponin I (0.000-0.056) ng/mL Total Protein (6.4-8.2) g/dL Albumin (3.4-5.0) g/dL Globulin (2.6-4.0) g/dL Albumin/Globulin Ratio (0.9-1.6) HCG, Qual (NEG) SARS-CoV-2 RNA (GAIL) NEGATIVE (NEGATIVE) Med Orders - Current: Current Medications Benzonatate (Benzonatate 100 Mg Cap) 100 mg PO TID PRN PRN Reason: Cough Cyclobenzaprine HCl (Cyclobenzaprine 5 Mg Tab) 5 mg PO TID PRN PRN Reason: Muscle Spasm Diphenhydramine HCl (Diphenhydramine 50 Mg/Ml Sdv) 50 mg IVPUSH Q4H PRN PRN Reason: Itching Ketorolac Tromethamine (Ketorolac 30 Mg/Ml Sdv) 30 mg IVPUSH Q6H DEBBIE Stop: 11/28/20 00:01 Last Admin: 11/27/20 11:57 Dose: 30 mg Documented by: Morphine Sulfate (Morphine 2 Mg/Ml Syringe) 2 mg IVPUSH Q4H PRN PRN Reason: Pain (severe 7-10) Last Admin: 11/27/20 12:47 Dose: 2 mg Documented by: Ondansetron HCl (Ondansetron 4 Mg/2 Ml Sdv) 4 mg IVPUSH Q6H PRN PRN Reason: Nausea/Vomiting Last Admin: 11/27/20 11:59 Dose: 4 mg Documented by: Oxycodone/Acetaminophen (Acetaminophen/Oxycodone 325-5 Mg Tab) 2 tab PO Q4H PRN PRN Reason: Pain (moderate 4-6) Sodium Chloride (Sodium Chloride 0.9% 10 Ml Syringe) 10 ml FLUSH ASDIRECTED PRN PRN Reason: Keep Vein Open Sodium Chloride (Sodium Chloride 0.9% 2.5 Ml Syringe) 2.5 ml FLUSH ASDIRECTED PRN PRN Reason: Keep Vein Open Sodium Chloride (Sodium Chloride 0.9% 10 Ml Sdv) 10 ml IV ASDIRECTED PRN PRN Reason: IV Use Discontinued Medications Bupivacaine HCl (Bupivacaine 0.5% 10 Ml Sdv) Confirm Administered Dose 10 ml .ROUTE .STK-MED ONE Stop: 11/27/20 01:49 Cefazolin Sodium (Cefazolin 1 Gm Vial) Confirm Administered Dose 2 gm .ROUTE .STK-MED ONE Stop: 11/27/20 00:14 Fentanyl (Fentanyl 100 Mcg/2 Ml Sdv) Confirm Administered Dose 100 mcg .ROUTE .STK-MED ONE Stop: 11/27/20 00:09 Fentanyl (Fentanyl 100 Mcg/2 Ml Sdv) 50 mcg IVPUSH Q5M PRN PRN Reason: Pain Last Admin: 11/27/20 01:39 Dose: 50 mcg Documented by: Glycopyrrolate (Glycopyrrolate 0.2 Mg/Ml Sdv) Confirm Administered Dose 0.2 mg .ROUTE .STK-MED ONE Stop: 11/27/20 00:11 Hydromorphone HCl (Hydromorphone 1 Mg/Ml Syringe) 0.5 mg IVPUSH Q1H PRN PRN Reason: Pain (severe 7-10) Last Admin: 11/27/20 02:44 Dose: 0.5 mg Documented by: Sodium Chloride (Normal Saline) Confirm Administered Dose 20 mls @ as directed .ROUTE .STK-MED ONE Stop: 11/27/20 00:14 Acetaminophen 1,000 mg/ Premix 100 mls @ 400 mls/hr IV Q6H PRN PRN Reason: Pain Last Admin: 11/27/20 01:28 Dose: 400 mls/hr Documented by: Ketorolac Tromethamine (Ketorolac 30 Mg/Ml Sdv) Confirm Administered Dose 30 mg .ROUTE .STK-MED ONE Stop: 11/27/20 00:11 Lidocaine (Lidocaine 2% 5 Ml Sdv) Confirm Administered Dose 5 ml .ROUTE .STK-MED ONE Stop: 11/27/20 00:11 Lidocaine/Epinephrine (Lidocaine 1% With Epinephrine 1:100,000 20 Ml Mdv) Confirm Administered Dose 20 ml .ROUTE .STK-MED ONE Stop: 11/27/20 01:49 Midazolam HCl (Midazolam 1 Mg/Ml 2 Ml Sdv) Confirm Administered Dose 2 mg .ROUTE .STK-MED ONE Stop: 11/27/20 00:10 Ondansetron HCl (Ondansetron 4 Mg/2 Ml Sdv) Confirm Administered Dose 4 mg .ROUTE .STK-MED ONE Stop: 11/27/20 00:11 Ondansetron HCl (Ondansetron 4 Mg/2 Ml Sdv) Confirm Administered Dose 4 mg .ROUTE .STK-MED ONE Stop: 11/27/20 03:18 Last Admin: 11/27/20 06:17 Dose: Not Given Documented by: Ondansetron HCl (Ondansetron 4 Mg/2 Ml Sdv) 4 mg IVPUSH ONETIME ONE Stop: 11/27/20 03:27 Last Admin: 11/27/20 04:00 Dose: Not Given Documented by: Propofol (Propofol 200 Mg/20 Ml Sdv) Confirm Administered Dose 200 mg .ROUTE .STK-MED ONE Stop: 11/27/20 00:09 Rocuronium [place] (Rocuronium [place] 50 Mg/5 Ml Syringe) Confirm Administered Dose 50 mg .ROUTE .STK-MED ONE Stop: 11/27/20 00:11 Sugammadex Sodium (Sugammadex Sodium 200 Mg/2 Ml Vial) Confirm Administered Dose 200 mg .ROUTE .STK-MED ONE Stop: 11/27/20 00:11 - Exam Wound/Incisions: Dressing Dry and Intact General: Alert, Oriented, Mild Distress HEENT: Pupils Equal, Pupils Reactive Lungs: Normal Respiratory Effort Cardiovascular: Regular Rate GI/Abdominal Exam: Soft, Non-Tender Skin: Warm, Dry, Intact Sepsis Event Note - Evaluation Sepsis Screening Result: No Definite Risk - Focused Exam Vital Signs: Vital Signs Temp Pulse Resp BP Pulse Ox 11/27/20 12:55 36 C L 77 17 106/66 100 11/27/20 12:01 36.4 C 76 16 111/78 100 11/27/20 08:00 35.8 C L 84 16 106/56 L 100 11/27/20 06:00 78 16 106/56 L 100 11/27/20 05:00 71 16 105/60 100 11/27/20 04:30 80 16 113/55 L 100 11/27/20 04:00 77 16 109/58 L 100 11/27/20 03:30 82 16 108/58 L 100 11/27/20 03:00 82 18 109/61 100 11/27/20 02:45 80 18 112/63 100 11/27/20 02:30 84 18 110/63 100 11/27/20 02:15 90 20 108/58 L 100 11/27/20 02:09 35.9 C L 96 20 111/60 100 11/27/20 02:00 94 20 118/66 100 11/27/20 01:44 90 16 117/65 95 - Problem List & Annotations (1) Pneumothorax on left SNOMED Code(s): 771765229 Code(s): J93.9 - PNEUMOTHORAX, UNSPECIFIED Status: Acute Current Visit: No (2) Recurrent pneumothorax SNOMED Code(s): 60697696, 58457120 Code(s): J93.9 - PNEUMOTHORAX, UNSPECIFIED Status: Acute Current Visit: Yes - Problem List Review Problem List Initiated/Reviewed/Updated: Yes - My Orders Last 24 Hours: Active Orders 24 hr Category Date Time Status Patient Status [ADT] Routine ADT 11/26/20 23:43 Active Chest Tube Management [RC] ASDIRECTED Care 11/27/20 01:29 Active Intake and Output [RC] QSHIFT Care 11/27/20 01:24 Active Overnight Pulse Oximetry [RC] Click to Edit Care 11/27/20 00:58 Active Oxygen Therapy [RC] PRN Care 11/27/20 01:23 Active Pulse Oximetry [RC] CONTINUOUS Care 11/27/20 01:24 Active RT Incentive Spirometry [RC] Q1HWA Care 11/27/20 01:23 Active Up ad [place]a [RC] ASDIRECTED Care 11/27/20 01:23 Active Vital Signs [RC] PER UNIT ROUTINE Care 11/27/20 01:23 Active Regular Diet [DIET] Diet 11/27/20 Breakfast Active Fluoro Up To 1Hr [CR] Routine Exams 11/27/20 00:58 Taken Acetaminophen/oxyCODONE [Percocet 325-5 MG] Med 11/27/20 01:23 Active 2 tab PO Q4H PRN Benzonatate [Tessalon Perles] Med 11/27/20 01:26 Active 100 mg PO TID PRN Cyclobenzaprine [Flexeril] Med 11/27/20 01:27 Active 5 mg PO TID PRN Ketorolac [Toradol] Med 11/27/20 06:00 Active 30 mg IVPUSH Q6H Morphine Med 11/27/20 11:43 Active 2 mg IVPUSH Q4H PRN Ondansetron [Zofran] Med 11/27/20 06:00 Active 4 mg IVPUSH Q6H PRN Sodium Chloride 0.9% [Normal Saline] Med 11/27/20 01:23 Active 10 ml IV ASDIRECTED PRN Sodium Chloride 0.9% [Saline Flush] Med 11/27/20 01:23 Active 10 ml FLUSH ASDIRECTED PRN Sodium Chloride 0.9% [Saline Flush] Med 11/27/20 01:23 Active 2.5 ml FLUSH ASDIRECTED PRN diphenhydrAMINE [Benadryl] Med 11/27/20 01:23 Active 50 mg IVPUSH Q4H PRN Peripheral IV Insertion Adult [OM.PC] Urgent Oth 11/27/20 01:23 Ordered Resuscitation Status Routine Resus Stat 11/27/20 01:23 Ordered Medication Orders Benzonatate (Benzonatate 100 Mg Cap) 100 mg PO TID PRN PRN Reason: Cough Cyclobenzaprine HCl (Cyclobenzaprine 5 Mg Tab) 5 mg PO TID PRN PRN Reason: Muscle Spasm Diphenhydramine HCl (Diphenhydramine 50 Mg/Ml Sdv) 50 mg IVPUSH Q4H PRN PRN Reason: Itching Ketorolac Tromethamine (Ketorolac 30 Mg/Ml Sdv) 30 mg IVPUSH Q6H DEBBIE Stop: 11/28/20 00:01 Last Admin: 11/27/20 11:57 Dose: 30 mg Documented by: Admin: 11/27/20 06:15 Dose: 30 mg Documented by: THUAN Morphine Sulfate (Morphine 2 Mg/Ml Syringe) 2 mg IVPUSH Q4H PRN PRN Reason: Pain (severe 7-10) Last Admin: 11/27/20 12:47 Dose: 2 mg Documented by: YUDELKA Ondansetron HCl (Ondansetron 4 Mg/2 Ml Sdv) 4 mg IVPUSH Q6H PRN PRN Reason: Nausea/Vomiting Last Admin: 11/27/20 11:59 Dose: 4 mg Documented by: DAVID Oxycodone/Acetaminophen (Acetaminophen/Oxycodone 325-5 Mg Tab) 2 tab PO Q4H PRN PRN Reason: Pain (moderate 4-6) Sodium Chloride (Sodium Chloride 0.9% 10 Ml Syringe) 10 ml FLUSH ASDIRECTED PRN PRN Reason: Keep Vein Open Sodium Chloride (Sodium Chloride 0.9% 2.5 Ml Syringe) 2.5 ml FLUSH ASDIRECTED PRN PRN Reason: Keep Vein Open Sodium Chloride (Sodium Chloride 0.9% 10 Ml Sdv) 10 ml IV ASDIRECTED PRN PRN Reason: IV Use - Plan Plan (Free Text/Narrative):: The patient became nauseated with IV Dilaudid. Given IV morphine instead. 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 I called the thoracic surgeon cessation systems outreach specialist in [place]. He agreed that given this is a reoccurrence and happened so quickly,she should undergo a VATs. He accepted her for transfer. I visited with the patient and she agreed.
--- NOTE | 2020-11-27 15:03 | CR ---
INDICATION: Chest tube placement. TECHNIQUE: Fluoroscopically guided chest tube placement. Two spot images were obtained. FINDINGS: Left-sided chest tube placement. 41.1 seconds fluoroscopy time utilized. IMPRESSION: 41.1 seconds fluoroscopy time utilized at the time of a left-sided chest tube placement. Dictated by Oswald Moralez MD @ 11/27/2020 3:01:[address] Oswald Moralez @ Nov 27 2020 3:01PM
--- NOTE | 2020-11-28 12:04 | OR ---
SURGEON: SHELBI ROGERS MD DATE OF PROCEDURE: 11/27/2020 PREOPERATIVE DIAGNOSIS: Recurrent spontaneous left pneumothorax. POSTOPERATIVE DIAGNOSIS: Recurrent spontaneous left pneumothorax. PROCEDURE PERFORMED: Left thoracostomy tube placement. PRIMARY SURGEON: Shelbi Rogers MD ANESTHESIA: General endotracheal anesthesia. FLUIDS: 600 mL of crystalloid. ESTIMATED BLOOD LOSS: 3 mL. FINDINGS: Left chest tube placement with good return of air. The tube secured to the skin at 13 cm. COMPLICATIONS: None. INDICATIONS: The patient is a 35-year-old female who last month had a spontaneous pneumothorax. This was treated successfully with a chest tube. The patient was to follow up with a offset lithographic press operator this week, however, was feeling increasing chest pressure and presented to the emergency room. A chest x-ray was performed, which showed a moderate to large size pneumothorax. I explained the need for a chest tube. The last time the patient had a chest tube, they attempted conscious sedation; however, the patient did not tolerate this well, so decision was made to go to the operating room since the patient had stable vital signs to place this there under a deeper sedation. The patient and I discussed the procedure, expected perioperative course, and the risks. She verbalized understanding and wishes to proceed. PROCEDURE IN DETAIL: The patient was brought into the OR and placed on the OR table in supine position. A time-out was completed verifying the patient's name, age, date of , allergies, and procedure to be performed. General endotracheal anesthesia was induced. The patient remained stable after this. The left chest wall was prepped and draped in usual standard fashion. I anesthetized the area around the patient's previous chest tube site. A 10 blade was used to make an incision along this scar. Cautery was used to dissect down to the subcutaneous fat. I then used a hemostat to dissect down through the level of the chest wall. C-arm was used to verify that I was at approximately in the 5th to 6th intercostal space. Using a hemostat, I ran over the top of the ribs and entered the chest wall. A good chance of air was noted. I was able to place my finger through this defect and I could feel the lung tissue had fallen away and that I was in the chest wall. A 23-Citizen [place] chest tube was brought into the field. This was placed into the chest, then angled superiorly under fluoroscopic guidance. Once it was located within the apex, an x-ray was taken. I secured the tube to the chest wall using interrupted 3-0 silk sutures. The chest tube was at 13 cm at the skin. There was good tidaling through the chest tube, it was placed to suction. There was no air leak noted. Vaseline gauze was wrapped around the tube and an occlusive dressing placed. The patient tolerated the procedure well, was extubated and taken to PACU in stable condition. A postoperative chest x-ray showed resolution of pneumothorax and good placement of the chest tube. RODY GRANGER /[id number]
== END 2020-11-27 13:30 ==
LOC: MW.ED 22:02 → MW.MS 23:43
PROVIDERS: ADMIT Surgery; ATTEND Surgery
DX: J93.83 Other pneumothorax (principal); Z01.812 Encounter for preprocedural laboratory examination; Z20.822 Contact with and (suspected) exposure to COVID-19; Z88.2 Allergy status to sulfonamides
CPT/HCPCS: 32551; 36415; 71045; 71046; 76000; 80053; 82550; 84484; 84703; 85025; 85610; 85730; 87635; J0131; J0690; J1170; J1885; J2250; J2270; J2405; J2704; J3010; J3490; 00520; 96374; 96375; 96376; 99291; G0378; U0002